=== PATIENT | male | born 1965 | race Caucasian/White ===

== ENCOUNTER 2017-03-24 16:04 | Observation (INO) | payer OTHER ==
[~2017-03-24] VITALS: Ht 172.7 cm; Wt 77.0 kg
[2017-03-24] MEDS ORDERED: ATOR-22 PO (16:06)
[2017-03-24] MEDS ORDERED: ISOS30TA3 PO (16:06)
[2017-03-24] MEDS ORDERED: NORT75CA2 PO (16:06)
[2017-03-24] MEDS ORDERED: MoRPHine SULFATE 4 MG/ML 1 ML CARP\\VIAL IV STA (16:21)
[2017-03-24] MEDS ORDERED: SODIUM CHLORIDE 0.9% 500ML 500 ML IV STA (16:21)
[2017-03-24] MEDS ORDERED: OPTIRAY 320 IV PRN (16:30)
[2017-03-24 16:42] LABS: BASO % 0.8 %; BASO ABS # 0.06 K/uL (0-0.2); COMPLETE YES; EOS % 2.4 %; HEMATOCRIT 45.3 % (42-52); IG% 0.3 %; LYMPH % 23.7 %; LYMPH ABS # 1.75 K/uL (1.2-3.4); MEAN CELL VOLUME 94.6 fL (80-100); MEAN CORPUSCULAR HEMOGLOBIN 33.4 pg (25-34); MEAN CORPUSCULAR HGB CONC 35.3 g/dl (32-36); MEAN PLATELET VOLUME 8.9 fL (7.4-10.4); MONO % 6.6 %; NEUT % 66.2 %; PLATELET COUNT 237 K/uL (130-400); RED BLOOD COUNT 4.79 M/uL (4.7-6.1); WHITE BLOOD COUNT 7.39 K/uL (4.8-10.8)
[2017-03-24 16:50] LABS: ISTAT CREATININE 1.1 mg/dl (0.6-1.3); ISTAT HEMOGLOBIN 15.6 g/dl (14.0-18.0); ISTAT IONIZED CALCIUM 1.25 mmol/l (1.12-1.32)
--- NOTE | 2017-03-24 16:51 | EMERGENCY ROOM VISIT NOTE ---
History Report prepared by Jadon: Tom Mercado Under the Supervision of: Dr. Avi Coleman D.O. First contact with patient: 16:06 Chief Complaint: ABDOMINAL PAIN Stated Complaint: AB PAIN History of Present Illness The patient is a 51 year old male who presents to the Emergency Room with complaints of intermittent, central, lower, abdominal pain beginning 12 years ago. The patient states he has a history of a hernia for the past 12 years. He reports he has not had surgery because he has been in long term. The patient notes he was not doing anything abnormal today, and he started experiencing discomfort. He states his last bowel movement was yesterday. The patient denies vomiting. He reports he has had previous abdominal surgeries for hernias, and he still has his gallbladder and appendix. Source of History: patient Onset: 12 years ago Position: abdomen (central, lower) Timing: intermittent Associated Symptoms: No vomiting Review of Systems See HPI for pertinent positives & negatives. A total of 10 systems reviewed and were otherwise negative. Past Medical & Surgical Medical Problems: (1) Abdominal pain Family History Patient reports no known family medical history. Social History Housing Status: other (long term) Current/Historical Medications Scheduled Atorvastatin (Lipitor), 20 MG PO DAILY Isosorbide Mononitrate Ext Rel (Imdur Ext Rel), 30 MG PO QAM Nortriptyline Hcl (Pamelor), 75 MG PO HS Allergies Coded Allergies: No Known Allergies (Unverified , 03/24/17) Physical Exam Vital Signs Date Time Temp Pulse Resp B/P (MAP) Pulse Ox O2 Delivery O2 Flow Rate FiO2 03/24/17 18:17 83 18 154/108 98 Room Air 03/24/17 17:06 91 18 142/90 97 Room Air 03/24/17 16:08 37.2 90 20 170/103 98 Room Air Physical Exam GENERAL: alert, chronically ill-appearing, disheveled, non-toxic EYE EXAM: normal conjunctiva OROPHARYNX: no exudate, no erythema, lips, buccal mucosa, and tongue normal and mucous membranes are moist NECK: supple, no nuchal rigidity, no adenopathy, non-tender LUNGS: Clear to auscultation. Normal chest wall mechanics HEART: no murmurs, S1 normal and S2 normal ABDOMEN: abdomen soft, normo-active bowel sounds, no rebound or guarding. supra- umbilical hernia appreciated, tenderness to palpation, unable to be reduced. BACK: Back is symmetrical on inspection and there is no deformity, no midline tenderness, no CVA tenderness. SKIN: no rashes and no bruising UPPER EXTREMITIES: upper extremities are grossly normal. LOWER EXTREMITIES: No pitting edema. NEURO EXAM: Normal sensorium, cranial nerves II-XII grossly intact, normal speech, no gross weakness of arms, no gross weakness of legs. Medical Decision & Procedures ER Provider Diagnostic Interpretation: CT:Per my review, radiologist interpretation. CT SCAN OF THE ABDOMEN AND PELVIS WITH IV CONTRAST CLINICAL HISTORY: Periumbilical abdominal pain. COMPARISON STUDY: No priors. TECHNIQUE: Following the IV administration of 119 cc of Optiray 320, CT scan of the abdomen and pelvis is performed from the lung bases to the proximal femora. Images are reviewed in the axial, sagittal, and coronal planes. IV contrast was administered without complication. A dose lowering technique was utilized adhering to the principles of ALARA. CT DOSE: 322.33 mGy.cm FINDINGS: Lung bases: The heart is normal in size and without pericardial effusion. Emphysematous changes observed. The lung bases are otherwise clear noting dependent atelectasis. Liver: The contrast-enhanced liver is normal in size, contour, and attenuation. There is no intrahepatic biliary ductal dilatation. The hepatic veins and portal veins are patent. There is an 8.4 x 8.6 x 7.0 cm lesion in the right hepatic lobe seen on image #99. This demonstrates peripheral foci of nodular enhancement, and although incompletely characterized is typical appearance for a giant hemangioma. A 2.0 cm lesion in the left lobe on image #114 and a 1.6 cm lesion in the inferior right lobe on image #147 also likely represent small hemangiomas. Gallbladder: Unremarkable. Spleen: Normal in size and attenuation. Pancreas: Unremarkable. Adrenal glands: Unremarkable. Kidneys: The contrast enhanced kidneys are normal in size and without hydronephrosis. The kidneys enhance symmetrically. There are 2 small fat attenuation lesions in the lower pole of left kidney measuring up to 1.1 cm. These are consistent with tiny angiomyolipomas. Abdominal vasculature: The abdominal aorta is normal in course and caliber noting mild to moderate and age advanced atherosclerotic calcification. Bowel: The small bowel and colon are normal in course and caliber. There are scattered colonic diverticula without CT evidence of acute diverticulitis. The appendix is well-visualized and normal. Peritoneum: There is no intraperitoneal free air or abdominal ascites. There is a small fat-containing umbilical hernia. There is also a large fat-containing supraumbilical hernia. There is no fluid seen within the or bowel within either hernia sac. No inflammatory change is seen. Lymphadenopathy: None. Pelvic viscera: There is a 2 cm bladder diverticulum seen posteriorly on the left. The bladder is otherwise normal in appearance. The prostate and seminal vesicles are normal as imaged. Skeletal structures: No lytic or blastic lesions are seen. Moderate arthritic change is noted in the hips. IMPRESSION: 1. There are no acute infectious or inflammatory findings in the abdomen or pelvis. 2. Emphysema. 3. There is a small fat-containing umbilical hernia and a large fat-containing supraumbilical hernia. No bowel or fluid is seen within the hernia sacs. 4. There is an 8.6 cm lesion in the right lobe of the liver. Although incompletely characterized, the enhancement kinetics strongly favor a benign hemangioma. 2 additional smaller lesions also likely represent hemangiomas. If definitive characterization is desired a nonemergent MRI of the liver would be appropriate. 5. There is a 2.0 cm bladder diverticulum. 6. Additional findings as above. Electronically signed by: Ryan Hood M.D. 03/24/2017 5:12 PM Dictated Date/Time: 03/24/2017 4:58 PM Laboratory Results 03/24/17 16:33 Red Blood Count 4.79, Mean Corpuscular Volume 94.6, Mean Corpuscular Hemoglobin 33.4, Mean Corpuscular Hemoglobin Concent 35.3, Mean Platelet Volume 8.9, Neutrophils (%) (Auto) 66.2, Lymphocytes (%) (Auto) 23.7, Monocytes (%) (Auto) 6.6, Eosinophils (%) (Auto) 2.4, Basophils (%) (Auto) 0.8, Neutrophils # (Auto) 4.89, Lymphocytes # (Auto) 1.75, Monocytes # (Auto) 0.49, Eosinophils # (Auto) 0.18, Basophils # (Auto) 0.06 03/24/17 16:33 Test 03/24/17 00:00 03/24/17 16:33 03/24/17 16:40 Urine Color YELLOW Urine Appearance CLEAR (CLEAR) Urine pH 7.5 (4.5-7.5) Urine Specific [place] 1.009 (1.000-1.030) Urine Protein NEG (NEG) Urine Glucose (UA) NEG (NEG) Urine Ketones NEG (NEG) Urine Occult Blood NEG (NEG) Urine Nitrite NEG (NEG) Urine Bilirubin NEG (NEG) Urine Urobilinogen NEG (NEG) Urine Leukocyte Esterase NEG (NEG) Urine WBC (Auto) 0 /hpf (0-5) Urine RBC (Auto) 0-4 /hpf (0-4) Urine Hyaline Casts (Auto) 0 /lpf (0-5) Urine Epithelial Cells (Auto) 0-5 /lpf (0-5) Urine Bacteria (Auto) NEG (NEG) White Blood Count 7.39 K/uL (4.8-10.8) Red Blood Count 4.79 M/uL (4.7-6.1) Hemoglobin 16.0 g/dL (14.0-18.0) Hematocrit 45.3 % (42-52) Mean Corpuscular Volume 94.6 fL (80-100) Mean Corpuscular Hemoglobin 33.4 pg (25-34) Mean Corpuscular Hemoglobin Concent 35.3 g/dl (32-36) Platelet Count 237 K/uL (130-400) Mean Platelet Volume 8.9 fL (7.4-10.4) Neutrophils (%) (Auto) 66.2 % Lymphocytes (%) (Auto) 23.7 % Monocytes (%) (Auto) 6.6 % Eosinophils (%) (Auto) 2.4 % Basophils (%) (Auto) 0.8 % Neutrophils # (Auto) 4.89 K/uL (1.4-6.5) Lymphocytes # (Auto) 1.75 K/uL (1.2-3.4) Monocytes # (Auto) 0.49 K/uL (0.11-0.59) Eosinophils # (Auto) 0.18 K/uL (0-0.5) Basophils # (Auto) 0.06 K/uL (0-0.2) RDW Standard Deviation 46.7 fL (36.4-46.3) RDW Coefficient of Variation 13.5 % (11.5-14.5) Immature Granulocyte % (Auto) 0.3 % Immature Granulocyte # (Auto) 0.02 K/uL (0.00-0.02) Est Creatinine Clear Calc Drug Dose 78.6 ml/min Estimated GFR () 90.9 Estimated GFR (Non- 78.4 BUN/Creatinine Ratio 12.4 (10-20) Lactic Acid Level 0.7 mmol/L (0.4-2.0) Calcium Level 8.8 mg/dl (8.5-10.1) Total Bilirubin 0.3 mg/dl (0.2-1) Direct Bilirubin < 0.1 mg/dl (0-0.2) Aspartate Amino Transf (AST/SGOT) 14 U/L (15-37) Alanine Aminotransferase (ALT/SGPT) 26 U/L (12-78) Alkaline Phosphatase 95 U/L (45-117) Total Protein 6.9 gm/dl (6.4-8.2) Albumin 3.7 gm/dl (3.4-5.0) Lipase 210 U/L (73-393) Bedside Hemoglobin 15.6 g/dl (14.0-18.0) Bedside Hematocrit 46 % (42-52) Bedside Sodium 144 mEq/L (135-144) Bedside Potassium 4.0 mEq/L (3.3-5.0) Bedside Chloride 105 mEq/L (101-112) Bedside Total CO2 26 mEq/l (24-31) Anion Gap 17.0 mmol/L (16-25) Bedside Blood Urea Nitrogen 14 mg/dl (7-18) Bedside Creatinine 1.1 mg/dl (0.6-1.3) Bedside Glucose (other) 88 mg/dl (70-99) Bedside Ionized Calcium (Ziggy) 1.25 mmol/l (1.12-1.32) Laboratory results per my review. Medications Administered Medications (Trade) Dose Ordered Sig/[place] Route Start Time Stop Time Status Last Admin Dose Admin Sodium Chloride 500 ml @ 999 mls/hr Q31M STAT IV 03/24/17 16:21 03/24/17 16:51 DC 03/24/17 16:21 999 MLS/HR Morphine Sulfate (MoRPHine SULFATE INJ) 4 mg NOW STAT IV 17 16:21 03/24/17 16:23 DC 03/24/17 16:29 4 MG ED Course ED COURSE: Vital signs were reviewed and showed the patient to be hypertensive. The patients medical record was reviewed The above diagnostic studies were performed and reviewed. ED treatments and interventions as stated above. 1607: The patient was evaluated in room C05. A complete history and physical examination was performed. 1621: Ordered Morphine Sulfate 4mg IV, Sodium Chloride 500 ml @ 999 mls/hr IV 1752: Upon reevaluation, the patient is resting.I discussed my findings with the patient and he understands and agrees with the treatment plan. 1808: I discussed the patient's case with Dr. Rojas, General Surgery. He suggested the patient be observed with IV fluids and conservative medication. 182: I discussed the patient's case with Annie Vinson PA-C, [facility] The patient will be evaluated for further management and care. Based on the patients age, coexisting illnesses, exam and lab findings the decision to treat as an inpatient was made. The patient remained stable while under my care. The patient will be evaluated for further management. Medical Decision Differential diagnoses includes but is not limited to gastritis, peptic ulcer disease, GERD, gallbladder disease, pancreatitis, small bowel obstruction, acute coronary syndrome, pericarditis, ischemic bowel, irritable bowel disease, irritable bowel syndrome, appendicitis, diverticulitis, malignancy, hernia, urinary tract infection, torsion, perforation, trauma, infectious. Patient is a 51-year-old male who presents to ER for pain around his abdominal hernia. He was sent in by the physician at the long term. On exam he has a supraumbilical hernia which is tender to palpation and has mild erythema. Unable to reduce. CBC all BMP, LFTs, bilirubin lipase is unremarkable. Lactic acid was normal. CT of abdomen and pelvis shows umbilical hernia and supraumbilical hernia which are fat containing. Patient was given IV morphine and fluids. Patient was feeling slightly better. Discussed with general surgery who recommended admission to internal medicine. Medication Reconcilliation Current Medication List: was personally reviewed by me Blood Pressure Screening Patient's blood pressure: Elevated blood pressure Blood pressure disposition: Elevated BP felt to be situational Consults Time Called: 1803 Consulting Physician: Dr. Rojas, General Surgery Returned Call: 1807 I discussed the patient's case with Dr. Rojas, General Surgery. He suggested the patient be observed with IV fluids and conservative medication. Additional Consults: Time Called: 1823 Consulted Physician: [facility]-C[facility] Returned Call: 1826 Additional Comments: I discussed the patient's case with Annie Vinson PA-C, [facility] Hospitalist. The patient will be evaluated for further management and care. Impression Primary Impression: Abdominal pain Scribe Attestation The scribe's documentation has been prepared under my direction and personally reviewed by me in its entirety. I confirm that the note above accurately reflects all work, treatment, procedures, and medical decision making performed by me. Departure Information Dispostion Being Evaluated By Hospitalist Patient Instructions [facility] Problem Qualifiers Primary Impression: Abdominal pain Abdominal location: unspecified location Qualified Codes: R10.9 - Unspecified abdominal pain
[2017-03-24 17:04] LABS: ALT/SGPT 26 U/L (12-78); AST/SGOT 14 U/L (15-37); BLOOD UREA NITROGEN 14 mg/dl (7-18); BUN/CREATININE RATIO 12.4 (10-20); CALCIUM 8.8 mg/dl (8.5-10.1); CARBON DIOXIDE 27 mmol/L (21-32); CHLORIDE 110 mmol/L (98-107); GLUCOSE 97 mg/dl (70-99); SODIUM 143 mmol/L (136-145)
[2017-03-24 17:06] LABS: ALKALINE PHOSPHATASE 95 U/L (45-117)
[2017-03-24 17:07] LABS: URINE APPEARANCE CLEAR (CLEAR); URINE BILIRUBIN NEG (NEG); URINE COLOR YELLOW; URINE EPITHELIAL CELL AUTO 0-5 /lpf (0-5); URINE NITRITE NEG (NEG); URINE PH 7.5 (4.5-7.5); URINE SPECIFIC GRAVITY 1.009 (1.000-1.030); UROBILINOGEN NEG (NEG); ZZUR CULT IF INDIC CLEAN CATCH NO
[2017-03-24 17:08] LABS: MANUAL MICROSCOPIC REQUIRED? NO; REVIEW REQ? NO
--- NOTE | 2017-03-24 17:13 | DIAGNOSTIC IMAGING REPORT ---
CT SCAN OF THE ABDOMEN AND PELVIS WITH IV CONTRAST CLINICAL HISTORY: Periumbilical abdominal pain. COMPARISON STUDY: No priors. TECHNIQUE: Following the IV administration of 119 cc of Optiray 320, CT scan of the abdomen and pelvis is performed from the lung bases to the proximal femora. Images are reviewed in the axial, sagittal, and coronal planes. IV contrast was administered without complication. A dose lowering technique was utilized adhering to the principles of ALARA. CT DOSE: 322.33 mGy.cm FINDINGS: Lung bases: The heart is normal in size and without pericardial effusion. Emphysematous changes observed. The lung bases are otherwise clear noting dependent atelectasis. Liver: The contrast-enhanced liver is normal in size, contour, and attenuation. There is no intrahepatic biliary ductal dilatation. The hepatic veins and portal veins are patent. There is an 8.4 x 8.6 x 7.0 cm lesion in the right hepatic lobe seen on image #99. This demonstrates peripheral foci of nodular enhancement, and although incompletely characterized is typical appearance for a giant hemangioma. A 2.0 cm lesion in the left lobe on image #114 and a 1.6 cm lesion in the inferior right lobe on image #147 also likely represent small hemangiomas. Gallbladder: Unremarkable. Spleen: Normal in size and attenuation. Pancreas: Unremarkable. Adrenal glands: Unremarkable. Kidneys: The contrast enhanced kidneys are normal in size and without hydronephrosis. The kidneys enhance symmetrically. There are 2 small fat attenuation lesions in the lower pole of left kidney measuring up to 1.1 cm. These are consistent with tiny angiomyolipomas. Abdominal vasculature: The abdominal aorta is normal in course and caliber noting mild to moderate and age advanced atherosclerotic calcification. Bowel: The small bowel and colon are normal in course and caliber. There are scattered colonic diverticula without CT evidence of acute diverticulitis. The appendix is well-visualized and normal. Peritoneum: There is no intraperitoneal free air or abdominal ascites. There is a small fat-containing umbilical hernia. There is also a large fat-containing supraumbilical hernia. There is no fluid seen within the or bowel within either hernia sac. No inflammatory change is seen. Lymphadenopathy: None. Pelvic viscera: There is a 2 cm bladder diverticulum seen posteriorly on the left. The bladder is otherwise normal in appearance. The prostate and seminal vesicles are normal as imaged. Skeletal structures: No lytic or blastic lesions are seen. Moderate arthritic change is noted in the hips. IMPRESSION: 1. There are no acute infectious or inflammatory findings in the abdomen or pelvis. 2. Emphysema. 3. There is a small fat-containing umbilical hernia and a large fat-containing supraumbilical hernia. No bowel or fluid is seen within the hernia sacs. 4. There is an 8.6 cm lesion in the right lobe of the liver. Although incompletely characterized, the enhancement kinetics strongly favor a benign hemangioma. 2 additional smaller lesions also likely represent hemangiomas. If definitive characterization is desired a nonemergent MRI of the liver would be appropriate. 5. There is a 2.0 cm bladder diverticulum. 6. Additional findings as above. Electronically signed by: Ryan Hood M.D. 03/24/2017 5:12 PM Dictated Date/Time: 03/24/2017 4:58 PM
[2017-03-24] MEDS ORDERED: POLYETHYLENE (MIRALAX) 17 GM PACK PO PRN (19:00)
[2017-03-24] MEDS ORDERED: MAGNESIUM HYDROXIDE SUSP 30 ML UDC PO PRN (19:00)
[2017-03-24] MEDS ORDERED: IV FLUIDS COMPLETED PRN (19:00)
[2017-03-24] MEDS ORDERED: ALUMINUM/MAGNESIUM/SIMETH (MAALOX MAX) 30 ML UDC PO PRN (19:00)
[2017-03-24] MEDS ORDERED: ONDANSETRON INJ 2 MG/ML 2 ML VIAL IV PRN (19:00)
--- NOTE | 2017-03-24 19:24 | HISTORY & PHYSICAL EXAMINATION ---
DATE OF ADMISSION: 03/24/2017 CHIEF COMPLAINT: Abdominal pain. HISTORY OF PRESENT ILLNESS: This is a 51-year-old male coming from the correctional [facility] with past medical history significant for hyperlipidemia, questionable high blood pressure and abdominal hernias presents with abdominal pain. The patient says he has abdominal pain on and off since 12 years because of his hernias. In the last 2-3 days, he is having severe 10/10 abdominal pain radiating from center to periphery of his abdomen. Denies any nausea or vomiting. Had normal bowel movements yesterday. Currently, resting comfortably and hemodynamically stable. He has headaches, no blurred vision, no cough, has some sore throat, has some difficulty swallowing chronically. No chest pain, no shortness of breath, no fever, no chills, has complaints of some mild rash in back of the head. No swelling in the legs. Normal bowel and bladder movements. No blood in the stools or blood in the urine. ALLERGIES: No known drug allergies. PAST MEDICAL HISTORY: As mentioned above. PAST SURGICAL HISTORY: Has questionable inguinal hernia, bilateral inguinal hernia when he was a kid. MEDICATIONS: The patient is on Lipitor 20 mg p.o. daily, Imdur extended release 30 mg p.o. q.a.m., Nortriptyline 75 mg p.o. at bedtime. FAMILY HISTORY: Significant for mother has high blood pressure. REVIEW OF SYMPTOMS: As per HPI. Rest of review of symptoms negative. PHYSICAL EXAMINATION: GENERAL: The patient is of moderate build, not in distress. VITAL SIGNS: Temperature 37.2, pulse 83, respiratory rate 18, blood pressure 154/108, oxygen 99% on room air. HEENT: No pallor, no icterus. Pupils equal, round, and reactive to light. NECK: No JVD, no neck masses, no carotid bruits. CARDIOVASCULAR: S1, S2 heard, regular rate and rhythm, no murmur, no gallop. RESPIRATORY SYSTEM: Clear to auscultation bilaterally. No wheezing, no crackles. ABDOMEN: Soft, bowel sounds present. Mild diffuse tenderness, no rigidity, no guarding. No distention. CENTRAL NERVOUS SYSTEM: Cranial nerves II-XII grossly intact. Nonfocal. EXTREMITIES: No edema, no erythema. LABORATORY DATA: Urinalysis negative. Sodium 144, potassium 4, chloride 105, bicarbonate 27, BUN 14, creatinine 1.1, serum glucose 97. Lactic acid 0.7, calcium 8.8, total bilirubin 0.3, direct bilirubin less than 0.1, AST 14, ALT 26, alkaline phosphatase 95. Lipase 210. Urinalysis - wbc's 7.3. Hemoglobin 16, hematocrit 45.3, platelets 237. IMAGING DATA: CT of the abdomen and pelvis shows no acute infectious or inflammatory findings in the abdominal or pelvis. There is a small fat containing umbilical hernia and large fat containing supraumbilical hernia, no bowel or fluid seen.8.6cm lesion seen in the right lobe of the liver, most likely hemangioma, additional small lesions also likely represents hemangiomas. ASSESSMENT AND PLAN: 1. This is a 51-year-old male who presents with abdominal pain. CAT scan shows fat containing of small umbilical hernia and supraumbilical hernias. As per patient, they are there since last 12 years and bothering him. He wants them to be fixed. last two days pain has been worse. Surgery is consulted. We will observe the patient in the hospital. Pain control, IV fluids. We will continue with diet and monitor him on the medical floor. If stable, plan for [facility] and follow with surgery as an outpatient. 2. Hyperlipidemia. The patient says he is not taking any medications. 3. Questionable high blood pressure. The patient on Imdur but says he dont have high blood pressure and he says he has intermittent chest pain, probably it was prescribed for his chest pains. 4. Deep vein thrombosis prophylaxis: scds 5. Disposition: Observation on medical floor. Expected discharge back to correction facility, when stable. Level 1 full code. MTDD
--- NOTE | 2017-03-24 19:59 | Medical Consult ---
Consultation Date of Consultation: Mar 24, 2017. Attending Physician: Reason for Consultation: hernias History of Present Illness pt with longstanding abd pain and known umbilical and ventral hernias Social History Smoking Status: Former Smoker Allergies Coded Allergies: No Known Allergies (Unverified , 03/24/17) Current Inpatient Medications Current Inpatient Medications Medications (Trade) Dose Ordered Sig/[place] Route Start Time Stop Time Status Last Admin Dose Admin Ioversol (Optiray 320) 100 ml UD PRN IV 03/24/17 16:30 03/28/17 16:29 Acetaminophen (Tylenol Tab) 650 mg Q4H PRN PO 03/24/17 19:00 04/23/17 18:59 Al Hydrox/Mg Hydrox/Simethicone (Maalox Max Susp) 15 ml Q4H PRN PO 03/24/17 19:00 04/23/17 18:59 Magnesium Hydroxide (Milk Of Magnesia Susp) 30 ml Q6H PRN PO 03/24/17 19:00 04/23/17 18:59 Polyethylene (Miralax Powder Packet) 17 gm DAILY PRN PO 03/24/17 19:00 04/23/17 18:59 Ondansetron HCl (Zofran Inj) 4 mg Q6H PRN IV 03/24/17 19:00 04/23/17 18:59 Sodium Chloride 1,000 ml @ 100 mls/hr Q10H IV 03/24/17 19:00 04/23/17 18:59 UNV Isosorbide Mononitrate (Imdur Ext Rel Tab) 30 mg QAM PO 03/25/17 09:00 04/24/17 08:59 Nortriptyline HCl (Pamelor Cap) 75 mg HS PO 03/24/17 21:00 04/23/17 20:59 Morphine Sulfate (MoRPHine SULFATE INJ) 2 mg Q4 PRN IV 03/24/17 19:00 04/07/17 18:59 Famotidine 20 mg/ Dextrose 102 ml @ 200 mls/hr Q12H IV 03/24/17 19:00 04/23/17 18:59 UNV Miscellaneous (Iv Fluids Completed) 1 ea PRN PRN N/A 03/24/17 19:00 03/24/18 18:59 Review of Systems Constitutional: No fever, No chills Respiratory: No cough, No shortness of breath Cardiovascular: No chest pain Abdomen: + pain, No nausea, No vomiting Endocrine: No fatigue Integumentary: No rash Physical Exam Date Time Temp Pulse Resp B/P (MAP) Pulse Ox O2 Delivery O2 Flow Rate FiO2 03/24/17 19:25 82 18 139/94 95 Room Air 03/24/17 18:17 83 18 154/108 98 Room Air 03/24/17 17:06 91 18 142/90 97 Room Air 03/24/17 16:08 37.2 90 20 170/103 98 Room Air General Appearance: no apparent distress Head: atraumatic Eyes: sclerae normal Neck: supple Respiratory/Chest: no respiratory distress Cardiovascular: regular rate, rhythm Abdomen/GI: soft (minimal tenderness, ventral hernia reducible- recurs) Neurologic/Psych: alert Skin: no rash Laboratory Results Last 24 Hours Test 03/24/17 00:00 03/24/17 16:33 03/24/17 16:40 Urine Color YELLOW Urine Appearance CLEAR Urine pH 7.5 Urine Specific Pep 1.009 Urine Protein NEG Urine Glucose (UA) NEG Urine Ketones NEG Urine Occult Blood NEG Urine Nitrite NEG Urine Bilirubin NEG Urine Urobilinogen NEG Urine Leukocyte Esterase NEG Urine WBC (Auto) 0 /hpf Urine RBC (Auto) 0-4 /hpf Urine Hyaline Casts (Auto) 0 /lpf Urine Epithelial Cells (Auto) 0-5 /lpf Urine Bacteria (Auto) NEG White Blood Count 7.39 K/uL Red Blood Count 4.79 M/uL Hemoglobin 16.0 g/dL Hematocrit 45.3 % Mean Corpuscular Volume 94.6 fL Mean Corpuscular Hemoglobin 33.4 pg Mean Corpuscular Hemoglobin Concent 35.3 g/dl Platelet Count 237 K/uL Mean Platelet Volume 8.9 fL Neutrophils (%) (Auto) 66.2 % Lymphocytes (%) (Auto) 23.7 % Monocytes (%) (Auto) 6.6 % Eosinophils (%) (Auto) 2.4 % Basophils (%) (Auto) 0.8 % Neutrophils # (Auto) 4.89 K/uL Lymphocytes # (Auto) 1.75 K/uL Monocytes # (Auto) 0.49 K/uL Eosinophils # (Auto) 0.18 K/uL Basophils # (Auto) 0.06 K/uL RDW Standard Deviation 46.7 fL RDW Coefficient of Variation 13.5 % Immature Granulocyte % (Auto) 0.3 % Immature Granulocyte # (Auto) 0.02 K/uL Sodium Level 143 mmol/L Potassium Level 4.0 mmol/L Chloride Level 110 mmol/L Carbon Dioxide Level 27 mmol/L Anion Gap 6.0 mmol/L 17.0 mmol/L Blood Urea Nitrogen 14 mg/dl Creatinine 1.10 mg/dl Est Creatinine Clear Calc Drug Dose 78.6 ml/min Estimated GFR () 90.9 Estimated GFR (Non- 78.4 BUN/Creatinine Ratio 12.4 Random Glucose 97 mg/dl Lactic Acid Level 0.7 mmol/L Calcium Level 8.8 mg/dl Total Bilirubin 0.3 mg/dl Direct Bilirubin < 0.1 mg/dl Aspartate Amino Transf (AST/SGOT) 14 U/L Alanine Aminotransferase (ALT/SGPT) 26 U/L Alkaline Phosphatase 95 U/L Total Protein 6.9 gm/dl Albumin 3.7 gm/dl Lipase 210 U/L Bedside Hemoglobin 15.6 g/dl Bedside Hematocrit 46 % Bedside Sodium 144 mEq/L Bedside Potassium 4.0 mEq/L Bedside Chloride 105 mEq/L Bedside Total CO2 26 mEq/l Bedside Blood Urea Nitrogen 14 mg/dl Bedside Creatinine 1.1 mg/dl Bedside Glucose (other) 88 mg/dl Bedside Ionized Calcium (Ziggy) 1.25 mmol/l Assessment & Plan pt with very stable umbilical hernia- small with fat and 2-3 cm ventral hernia with fat- not strangulated- does not require urgent repair. no prior abd hernia repair- can likely perform electively with laparoscope at some point in future. Regular diet. set up as outpt after d/c
[2017-03-24 20:17] VITALS: BP 149/98; PULSE 92; TEMP 36.7; O2SAT 98
[2017-03-24 20:29] VITALS: BP 149/98; PULSE 92; TEMP 36.7; Ht 172.7 cm; Wt 77.0 kg
[2017-03-24] MEDS: SODIUM CHLORIDE 0.9% 1000ML 1,000 ML IV SCH (20:40)
[2017-03-24] MEDS: FAMOTIDINE IV INJ 20 MG in DEXTROSE 5% 100ML 100 ML IV SCH (20:41)
[2017-03-24] MEDS: NORTRIPTYLINE HCL 25 MG CAP PO SCH (22:31)
[2017-03-24 23:08] VITALS: BP 126/80; PULSE 74; TEMP 36.7; O2SAT 95
[2017-03-25] MEDS: ACETAMINOPHEN 325 MG TAB PO PRN ×2 (00:10→13:28)
[2017-03-25] MEDS: SODIUM CHLORIDE 0.9% 1000ML 1,000 ML IV SCH ×3 (04:58→23:50)
[2017-03-25] MEDS: MoRPHine SULFATE 2 MG/ML CARP IV PRN (05:00)
[2017-03-25 07:12] VITALS: BP 112/74; PULSE 69; TEMP 36.4; O2SAT 97
[2017-03-25 07:16] LABS: BASO % 0.6 %; BASO ABS # 0.06 K/uL (0-0.2); COMPLETE YES; EOS % 2.2 %; HEMATOCRIT 42.6 % (42-52); IG% 0.2 %; LYMPH % 16.9 %; MEAN CELL VOLUME 95.7 fL (80-100); MEAN CORPUSCULAR HEMOGLOBIN 31.9 pg (25-34); MEAN CORPUSCULAR HGB CONC 33.3 g/dl (32-36); MONO % 8.1 %; PLATELET COUNT 220 K/uL (130-400); RED BLOOD COUNT 4.45 M/uL (4.7-6.1); WHITE BLOOD COUNT 10.06 K/uL (4.8-10.8)
[2017-03-25 07:48] LABS: BUN/CREATININE RATIO 12.3 (10-20); CALCIUM 8.2 mg/dl (8.5-10.1); CREATININE 0.99 mg/dl (0.60-1.40); MAGNESIUM 2.3 mg/dl (1.8-2.4); POTASSIUM 4.3 mmol/L (3.5-5.1)
[2017-03-25 08:05] VITALS: O2SAT 97
--- NOTE | 2017-03-25 08:16 | Surgery Progress Note ---
Surgery Progress Note Date of Service Mar 25, 2017. Subjective pt is very stable- no acute chgs Objective Vital Signs: Date Time Temp Pulse Resp B/P (MAP) Pulse Ox O2 Delivery O2 Flow Rate FiO2 03/25/17 07:12 36.4 69 16 112/74 (87) 97 Room Air 03/25/17 00:12 Room Air 03/24/17 23:08 36.7 74 16 126/80 (95) 95 Room Air 03/24/17 20:29 36.7 92 18 149/98 Room Air 03/24/17 20:17 36.7 92 18 149/98 (115) 98 Room Air 03/24/17 20:03 79 18 142/97 96 Room Air 03/24/17 19:25 82 18 139/94 95 Room Air 03/24/17 18:17 83 18 154/108 98 Room Air 03/24/17 17:06 91 18 142/90 97 Room Air 03/24/17 16:08 37.2 90 20 170/103 98 Room Air General Appearance: no apparent distress Respiratory/Chest: no respiratory distress Abdomen: non distended (no evidence of hernia strangulation), soft Laboratory Results: Results Past 24 Hours Test 03/24/17 16:33 03/24/17 16:40 03/25/17 06:47 Range/Units White Blood Count 7.39 10.06 4.8-10.8 K/uL Red Blood Count 4.79 4.45 4.7-6.1 M/uL Hemoglobin 16.0 14.2 14.0-18.0 g/dL Hematocrit 45.3 42.6 42-52 % Mean Corpuscular Volume 94.6 95.7 80-100 fL Mean Corpuscular Hemoglobin 33.4 31.9 25-34 pg Mean Corpuscular Hemoglobin Concent 35.3 33.3 32-36 g/dl Platelet Count 237 220 130-400 K/uL Mean Platelet Volume 8.9 9.0 7.4-10.4 fL Neutrophils (%) (Auto) 66.2 72.0 % Lymphocytes (%) (Auto) 23.7 16.9 % Monocytes (%) (Auto) 6.6 8.1 % Eosinophils (%) (Auto) 2.4 2.2 % Basophils (%) (Auto) 0.8 0.6 % Neutrophils # (Auto) 4.89 7.25 1.4-6.5 K/uL Lymphocytes # (Auto) 1.75 1.70 1.2-3.4 K/uL Monocytes # (Auto) 0.49 0.81 0.11-0.59 K/uL Eosinophils # (Auto) 0.18 0.22 0-0.5 K/uL Basophils # (Auto) 0.06 0.06 0-0.2 K/uL RDW Standard Deviation 46.7 48.2 36.4-46.3 fL RDW Coefficient of Variation 13.5 13.7 11.5-14.5 % Immature Granulocyte % (Auto) 0.3 0.2 % Immature Granulocyte # (Auto) 0.02 0.02 0.00-0.02 K/uL Sodium Level 143 144 136-145 mmol/L Potassium Level 4.0 4.3 3.5-5.1 mmol/L Chloride Level 110 113 98-107 mmol/L Carbon Dioxide Level 27 26 21-32 mmol/L Anion Gap 6.0 17.0 5.0 3-11 mmol/L Blood Urea Nitrogen 14 12 7-18 mg/dl Creatinine 1.10 0.99 0.60-1.40 mg/dl Est Creatinine Clear Calc Drug Dose 78.6 87.3 ml/min Estimated GFR () 90.9 103.2 Estimated GFR (Non- 78.4 89.1 BUN/Creatinine Ratio 12.4 12.3 10-20 Random Glucose 97 106 70-99 mg/dl Lactic Acid Level 0.7 0.4-2.0 mmol/L Calcium Level 8.8 8.2 8.5-10.1 mg/dl Total Bilirubin 0.3 0.2-1 mg/dl Direct Bilirubin < 0.1 0-0.2 mg/dl Aspartate Amino Transf (AST/SGOT) 14 15-37 U/L Alanine Aminotransferase (ALT/SGPT) 26 12-78 U/L Alkaline Phosphatase 95 45-117 U/L Total Protein 6.9 6.4-8.2 gm/dl Albumin 3.7 3.4-5.0 gm/dl Lipase 210 73-393 U/L Bedside Hemoglobin 15.6 14.0-18.0 g/dl Bedside Hematocrit 46 42-52 % Bedside Sodium 144 135-144 mEq/L Bedside Potassium 4.0 3.3-5.0 mEq/L Bedside Chloride 105 101-112 mEq/L Bedside Total CO2 26 24-31 mEq/l Bedside Blood Urea Nitrogen 14 7-18 mg/dl Bedside Creatinine 1.1 0.6-1.3 mg/dl Bedside Glucose (other) 88 70-99 mg/dl Bedside Ionized Calcium (Ziggy) 1.25 1.12-1.32 mmol/l Magnesium Level 2.3 1.8-2.4 mg/dl Assessment & Plan 03/25/17- Pt is stable to have elective hernia surgery- does not need to be done this weekend. [facility] and set up through office and [facility]
[2017-03-25] MEDS: ISOSORBIDE MONONITRATE 30 MG TABCR PO SCH (09:05)
[2017-03-25] MEDS: FAMOTIDINE IV INJ 20 MG in DEXTROSE 5% 100ML 100 ML IV SCH ×2 (09:05→22:12)
[2017-03-25 15:10] VITALS: BP 115/62; PULSE 70; TEMP 36.8; O2SAT 97
--- NOTE | 2017-03-25 17:12 | Progress Note ---
Internal Med Progress Note Date of Service: Mar 25, 2017. Provider Documentation: SUBJECTIVE: eating fine no nausea but says his pain is same and does not want to go back today and want to wait for one more dsay no sob afebrile OBJECTIVE: Vital Signs-as noted below Exam: General-alert and awake. Not in distress ENT-normal hearing Neck-no neck masses Lungs-cta b/l no wheezing present no crackles Heart-s1 and s2 heard regular rate and rhythm no murmurs Abdomen-soft bowel sounds present mild diffuse tender no distension Extremities-no erythema no edema Neuro-alert and awake moves extremities Lab data as noted below. ASSESSMENT & PLAN: 1. This is a 51-year-old male who presents with abdominal pain. CAT scan shows fat containing of small umbilical hernia and supraumbilical hernias. As per patient, they are there since last 12 years and bothering him. He wants them to be fixed. last two days pain has been worse. Surgery is consulted. We will observe the patient in the hospital. Pain control, IV fluids. We will continue with diet and monitor him on the medical floor. If stable, plan [facility] and follow with surgery as an outpatient. 03/25/17 surgery ok to d/c and f/u next week for elective surgery but patinet not ready for discharge will observe one more day and monitor. 2. Hyperlipidemia. The patient says he is not taking any medications. 3. Questionable high blood pressure. The patient on Imdur but says he dont have high blood pressure and he says he has intermittent chest pain, probably it was prescribed for his chest pains.stable 4. Deep vein thrombosis prophylaxis: scds 5. Disposition: Observation on medical floor. Expected [facility], possibly in am.. Level 1 full code Vital Signs: Date Time Temp Pulse Resp B/P (MAP) Pulse Ox O2 Delivery O2 Flow Rate FiO2 03/25/17 15:10 36.8 70 18 115/62 (79) 97 Room Air 03/25/17 08:05 97 Room Air 03/25/17 07:12 36.4 69 16 112/74 (87) 97 Room Air 03/25/17 00:12 Room Air 03/24/17 23:08 36.7 74 16 126/80 (95) 95 Room Air 03/24/17 20:29 36.7 92 18 149/98 Room Air 03/24/17 20:17 36.7 92 18 149/98 (115) 98 Room Air 03/24/17 20:03 79 18 142/97 96 Room Air 03/24/17 19:25 82 18 139/94 95 Room Air 03/24/17 18:17 83 18 154/108 98 Room Air Lab Results: Results Past 24 Hours Test 03/25/17 06:47 Range/Units White Blood Count 10.06 4.8-10.8 K/uL Red Blood Count 4.45 4.7-6.1 M/uL Hemoglobin 14.2 14.0-18.0 g/dL Hematocrit 42.6 42-52 % Mean Corpuscular Volume 95.7 80-100 fL Mean Corpuscular Hemoglobin 31.9 25-34 pg Mean Corpuscular Hemoglobin Concent 33.3 32-36 g/dl Platelet Count 220 130-400 K/uL Mean Platelet Volume 9.0 7.4-10.4 fL Neutrophils (%) (Auto) 72.0 % Lymphocytes (%) (Auto) 16.9 % Monocytes (%) (Auto) 8.1 % Eosinophils (%) (Auto) 2.2 % Basophils (%) (Auto) 0.6 % Neutrophils # (Auto) 7.25 1.4-6.5 K/uL Lymphocytes # (Auto) 1.70 1.2-3.4 K/uL Monocytes # (Auto) 0.81 0.11-0.59 K/uL Eosinophils # (Auto) 0.22 0-0.5 K/uL Basophils # (Auto) 0.06 0-0.2 K/uL RDW Standard Deviation 48.2 36.4-46.3 fL RDW Coefficient of Variation 13.7 11.5-14.5 % Immature Granulocyte % (Auto) 0.2 % Immature Granulocyte # (Auto) 0.02 0.00-0.02 K/uL Sodium Level 144 136-145 mmol/L Potassium Level 4.3 3.5-5.1 mmol/L Chloride Level 113 98-107 mmol/L Carbon Dioxide Level 26 21-32 mmol/L Anion Gap 5.0 3-11 mmol/L Blood Urea Nitrogen 12 7-18 mg/dl Creatinine 0.99 0.60-1.40 mg/dl Est Creatinine Clear Calc Drug Dose 87.3 ml/min Estimated GFR () 103.2 Estimated GFR (Non- 89.1 BUN/Creatinine Ratio 12.3 10-20 Random Glucose 106 70-99 mg/dl Calcium Level 8.2 8.5-10.1 mg/dl Magnesium Level 2.3 1.8-2.4 mg/dl
[2017-03-25] MEDS ORDERED: MoRPHine SULFATE 2 MG/ML CARP IV ONE (17:30)
[2017-03-25] MEDS: NORTRIPTYLINE HCL 25 MG CAP PO SCH (22:12)
[2017-03-25 23:45] VITALS: BP 124/70; PULSE 74; TEMP 36.7; O2SAT 95
[2017-03-26 06:24] LABS: BASO % 0.5 %; BASO ABS # 0.06 K/uL (0-0.2); COMPLETE YES; EOS % 1.6 %; HEMATOCRIT 38.7 % (42-52); IG% 0.2 %; LYMPH % 15.9 %; LYMPH ABS # 1.99 K/uL (1.2-3.4); MEAN CELL VOLUME 95.1 fL (80-100); MEAN CORPUSCULAR HEMOGLOBIN 32.4 pg (25-34); MEAN CORPUSCULAR HGB CONC 34.1 g/dl (32-36); MEAN PLATELET VOLUME 9.2 fL (7.4-10.4); NEUT % 74.8 %; PLATELET COUNT 222 K/uL (130-400); RED BLOOD COUNT 4.07 M/uL (4.7-6.1)
[2017-03-26 06:55] LABS: CALCIUM 8.3 mg/dl (8.5-10.1); MAGNESIUM 1.8 mg/dl (1.8-2.4); POTASSIUM 3.6 mmol/L (3.5-5.1)
[2017-03-26 07:37] VITALS: BP 123/75; PULSE 74; TEMP 36.8; O2SAT 97
[2017-03-26] MEDS: MoRPHine SULFATE 2 MG/ML CARP IV PRN (08:11)
[2017-03-26] MEDS: FAMOTIDINE IV INJ 20 MG in DEXTROSE 5% 100ML 100 ML IV SCH (09:15)
[2017-03-26] MEDS: ISOSORBIDE MONONITRATE 30 MG TABCR PO SCH (09:16)
[2017-03-26] MEDS: SODIUM CHLORIDE 0.9% 1000ML 1,000 ML IV SCH ×2 (10:26→20:15)
--- NOTE | 2017-03-26 14:07 | Surgery Progress Note ---
Surgery Progress Note Date of Service Mar 26, 2017. Subjective no acute chgs- discussed plan Objective Vital Signs: Date Time Temp Pulse Resp B/P (MAP) Pulse Ox O2 Delivery O2 Flow Rate FiO2 03/26/17 07:50 Room Air 03/26/17 07:37 36.8 74 16 123/75 (91) 97 Room Air 03/25/17 23:55 Room Air 03/25/17 23:45 36.7 74 16 124/70 (88) 95 Room Air 03/25/17 16:10 Room Air 03/25/17 15:10 36.8 70 18 115/62 (79) 97 Room Air General Appearance: no apparent distress Respiratory/Chest: no respiratory distress Abdomen: soft Laboratory Results: Results Past 24 Hours Test 03/26/17 05:36 Range/Units White Blood Count 12.50 4.8-10.8 K/uL Red Blood Count 4.07 4.7-6.1 M/uL Hemoglobin 13.2 14.0-18.0 g/dL Hematocrit 38.7 42-52 % Mean Corpuscular Volume 95.1 80-100 fL Mean Corpuscular Hemoglobin 32.4 25-34 pg Mean Corpuscular Hemoglobin Concent 34.1 32-36 g/dl Platelet Count 222 130-400 K/uL Mean Platelet Volume 9.2 7.4-10.4 fL Neutrophils (%) (Auto) 74.8 % Lymphocytes (%) (Auto) 15.9 % Monocytes (%) (Auto) 7.0 % Eosinophils (%) (Auto) 1.6 % Basophils (%) (Auto) 0.5 % Neutrophils # (Auto) 9.34 1.4-6.5 K/uL Lymphocytes # (Auto) 1.99 1.2-3.4 K/uL Monocytes # (Auto) 0.88 0.11-0.59 K/uL Eosinophils # (Auto) 0.20 0-0.5 K/uL Basophils # (Auto) 0.06 0-0.2 K/uL RDW Standard Deviation 46.1 36.4-46.3 fL RDW Coefficient of Variation 13.3 11.5-14.5 % Immature Granulocyte % (Auto) 0.2 % Immature Granulocyte # (Auto) 0.03 0.00-0.02 K/uL Sodium Level 142 136-145 mmol/L Potassium Level 3.6 3.5-5.1 mmol/L Chloride Level 111 98-107 mmol/L Carbon Dioxide Level 25 21-32 mmol/L Anion Gap 6.0 3-11 mmol/L Blood Urea Nitrogen 10 7-18 mg/dl Creatinine 1.00 0.60-1.40 mg/dl Est Creatinine Clear Calc Drug Dose 86.4 ml/min Estimated GFR () 102.0 Estimated GFR (Non- 88.0 BUN/Creatinine Ratio 10.0 10- Random Glucose 106 70-99 mg/dl Calcium Level 8.3 8.5-10.1 mg/dl Magnesium Level 1.8 1.8-2.4 mg/dl Assessment & Plan 03/26/17- plan to schedule possible surgery through office and longterm d/c when ok with med service 03/25/17- Pt is stable to have elective hernia surgery- does not need to be done this weekend. Consider d/c back to [facility] and set up through office and [facility] 03/25/17- Pt is stable to have elective hernia surgery- does not need to be done this weekend. Consider d/c back to [facility] and set up through office and [facility]
[2017-03-26] MEDS: OXYCODONE/ACETAMINOPHEN 5-325 TAB PO PRN ×2 (15:06→20:16)
[2017-03-26 15:38] VITALS: BP 126/71; PULSE 74; TEMP 37; O2SAT 97
--- NOTE | 2017-03-26 17:24 | Progress Note ---
Internal Med Progress Note Date of Service: Mar 26, 2017. Provider Documentation: SUBJECTIVE: complains of chest pains still has abdominal pain afebrile no nausea tolerating diet ok OBJECTIVE: Vital Signs-as noted below Exam: General-alert and awake. Not in distress ENT-normal hearing Neck-no neck masses Lungs-cta b/l no wheezing present no crackles Heart-s1 and s2 heard regular rate and rhythm no murmurs Abdomen-soft bowel sounds present mild diffuse tender no distension Extremities-no erythema no edema Neuro-alert and awake moves extremities Lab data as noted below. ASSESSMENT & PLAN: 1. This is a 51-year-old male who presents with abdominal pain. CAT scan shows fat containing of small umbilical hernia and supraumbilical hernias. As per patient, they are there since last 12 years and bothering him. He wants them to be fixed. last two days pain has been worse. tolerating diet fine Surgery recommends elective surgery 2. Hyperlipidemia. The patient says he is not taking any medications. 3. Intermittent chest pains. On imdur says cardiac cath was done and it was fine. having chest pain today will f/u ekg 4. Deep vein thrombosis prophylaxis: scds 5. Disposition: Observation on medical floor. Expected [facility] to [facility], possibly in am.. Level 1 full code Vital Signs: Date Time Temp Pulse Resp B/P (MAP) Pulse Ox O2 Delivery O2 Flow Rate FiO2 03/26/17 15:38 37.0 74 18 126/71 (89) 97 Room Air 03/26/17 07:50 Room Air 03/26/17 07:37 36.8 74 16 123/75 (91) 97 Room Air 03/25/17 23:55 Room Air 03/25/17 23:45 36.7 74 16 124/70 (88) 95 Room Air Lab Results: Results Past 24 Hours Test 03/26/17 05:36 03/26/17 15:08 Range/Units White Blood Count 12.50 4.8-10.8 K/uL Red Blood Count 4.07 4.7-6.1 M/uL Hemoglobin 13.2 14.0-18.0 g/dL Hematocrit 38.7 42-52 % Mean Corpuscular Volume 95.1 80-100 fL Mean Corpuscular Hemoglobin 32.4 25-34 pg Mean Corpuscular Hemoglobin Concent 34.1 32-36 g/dl Platelet Count 222 130-400 K/uL Mean Platelet Volume 9.2 7.4-10.4 fL Neutrophils (%) (Auto) 74.8 % Lymphocytes (%) (Auto) 15.9 % Monocytes (%) (Auto) 7.0 % Eosinophils (%) (Auto) 1.6 % Basophils (%) (Auto) 0.5 % Neutrophils # (Auto) 9.34 1.4-6.5 K/uL Lymphocytes # (Auto) 1.99 1.2-3.4 K/uL Monocytes # (Auto) 0.88 0.11-0.59 K/uL Eosinophils # (Auto) 0.20 0-0.5 K/uL Basophils # (Auto) 0.06 0-0.2 K/uL RDW Standard Deviation 46.1 36.4-46.3 fL RDW Coefficient of Variation 13.3 11.5-14.5 % Immature Granulocyte % (Auto) 0.2 % Immature Granulocyte # (Auto) 0.03 0.00-0.02 K/uL Sodium Level 142 136-145 mmol/L Potassium Level 3.6 3.5-5.1 mmol/L Chloride Level 111 98-107 mmol/L Carbon Dioxide Level 25 21-32 mmol/L Anion Gap 6.0 3-11 mmol/L Blood Urea Nitrogen 10 7-18 mg/dl Creatinine 1.00 0.60-1.40 mg/dl Est Creatinine Clear Calc Drug Dose 86.4 ml/min Estimated GFR () 102.0 Estimated GFR (Non- 88.0 BUN/Creatinine Ratio 10.0 10-20 Random Glucose 106 70-99 mg/dl Calcium Level 8.3 8.5-10.1 mg/dl Magnesium Level 1.8 1.8-2.4 mg/dl Troponin I < 0.015 0-0.045 ng/ml
[2017-03-26] MEDS: FAMOTIDINE 20 MG TAB PO SCH (20:31)
[2017-03-26] MEDS: NORTRIPTYLINE HCL 25 MG CAP PO SCH (20:31)
[2017-03-26 23:31] VITALS: BP 145/82; PULSE 75; TEMP 36.7; O2SAT 98
[2017-03-27] MEDS: SODIUM CHLORIDE 0.9% 1000ML 1,000 ML IV SCH (05:35)
[2017-03-27 07:00] LABS: BASO % 0.6 %; BASO ABS # 0.05 K/uL (0-0.2); COMPLETE YES; EOS % 2.5 %; HEMATOCRIT 38.1 % (42-52); IG% 0.2 %; LYMPH % 23.1 %; LYMPH ABS # 1.87 K/uL (1.2-3.4); MEAN CELL VOLUME 93.6 fL (80-100); MEAN CORPUSCULAR HEMOGLOBIN 32.7 pg (25-34); MEAN CORPUSCULAR HGB CONC 34.9 g/dl (32-36); MEAN PLATELET VOLUME 8.9 fL (7.4-10.4); MONO % 7.3 %; NEUT % 66.3 %; PLATELET COUNT 214 K/uL (130-400); RED BLOOD COUNT 4.07 M/uL (4.7-6.1); WHITE BLOOD COUNT 8.09 K/uL (4.8-10.8)
[2017-03-27 07:13] VITALS: BP 159/93; PULSE 70; TEMP 36.4; O2SAT 97
[2017-03-27 07:37] LABS: BUN/CREATININE RATIO 11.4 (10-20); CALCIUM 7.9 mg/dl (8.5-10.1); CREATININE 1.07 mg/dl (0.60-1.40); MAGNESIUM 2.1 mg/dl (1.8-2.4)
[2017-03-27] MEDS: OXYCODONE/ACETAMINOPHEN 5-325 TAB PO PRN (07:42)
[2017-03-27 09:33] VITALS: BP 148/82; PULSE 68
[2017-03-27] MEDS: ISOSORBIDE MONONITRATE 30 MG TABCR PO SCH (09:34)
[2017-03-27] MEDS: FAMOTIDINE 20 MG TAB PO SCH (09:34)
--- NOTE | 2017-03-27 11:31 | Discharge Instructions ---
Discharge Instructions Date of Service Mar 27, 2017. Admission Reason for Admission: Abdominal Pain Discharge Discharge Diagnosis / Problem: ABDOMINAL PAIN, CHEST PAIN Discharge Goals Goal(s): Decrease discomfort, Improve function Activity Recommendations Activity Limitations: resume your previous activity . Instructions / Follow-Up Instructions / Follow-Up FOLLOWUP WITH FAMILY DOCTOR ONE WEEK FOLLOWUP WITH GENERAL SURGERY 1-2 WEEKS Current Hospital Diet Patient's current hospital diet: Regular Diet Discharge Diet Recommended Diet: Regular Diet, AHA Diet (Heart Healthy) Pending Studies Studies pending at discharge: no Medical Emergencies . Who to Call and When: Medical Emergencies: If at any time you feel your situation is an emergency, please call 911 immediately. . Non-Emergent Contact Non-Emergency issues call your: Primary Care Provider . . "Provider Documentation" section prepared by Constantine Rivas. . VTE Core Measure Inpt VTE Proph given/why not?: SCD's
[2017-03-27 14:04] VITALS: BP 148/82; PULSE 68; TEMP 36.4; O2SAT 97
--- NOTE | 2017-03-27 16:08 | Progress Note ---
Internal Med Progress Note Date of Service: Mar 27, 2017. Provider Documentation: SUBJECTIVE: resting comfortably tolerating diet fine still has some abdominal pain but better ok for discharge OBJECTIVE: Vital Signs-as noted below Exam: General-alert and awake. Not in distress ENT-normal hearing Neck-no neck masses Lungs-cta b/l no wheezing present no crackles Heart-s1 and s2 heard regular rate and rhythm no murmurs Abdomen-soft bowel sounds present mild diffuse tender no distension Extremities-no erythema no edema Neuro-alert and awake moves extremities Lab data as noted below. ASSESSMENT & PLAN: 1. This is a 51-year-old male who presents with abdominal pain. CAT scan shows fat containing of small umbilical hernia and supraumbilical hernias. As per patient, they are there since last 12 years and bothering him. He wants them to be fixed. last two days pain has been worse. tolerating diet fine Surgery recommends elective surgery discharged to f/u with surgery 2. Hyperlipidemia. The patient says he is not taking any medications. 3. Intermittent chest pains. On imdur says cardiac cath was done and it was fine. having chest pain today ekg and troponin negative discharged Vital Signs: Date Time Temp Pulse Resp B/P (MAP) Pulse Ox O2 Delivery O2 Flow Rate FiO2 03/27/17 14:04 36.4 68 17 97 Room Air 03/27/17 09:33 68 148/82 (104) 03/27/17 07:40 Room Air 03/27/17 07:13 36.4 70 17 159/93 (115) 97 Room Air 03/26/17 23:35 Room Air 03/26/17 23:31 36.7 75 16 145/82 (103) 98 Room Air 03/26/17 19:58 Room Air Lab Results: Results Past 24 Hours Test 03/27/17 06:40 03/27/17 06:42 Range/Units Sodium Level 144 136-145 mmol/L Potassium Level 4.0 3.5-5.1 mmol/L Chloride Level 113 98-107 mmol/L Carbon Dioxide Level 23 21-32 mmol/L Anion Gap 8.0 3-11 mmol/L Blood Urea Nitrogen 12 7-18 mg/dl Creatinine 1.07 0.60-1.40 mg/dl Est Creatinine Clear Calc Drug Dose 80.8 ml/min Estimated GFR () 94.0 Estimated GFR (Non- 81.1 BUN/Creatinine Ratio 11.4 10-20 Random Glucose 101 70-99 mg/dl Calcium Level 7.9 8.5-10.1 mg/dl Magnesium Level 2.1 1.8-2.4 mg/dl White Blood Count 8.09 4.8-10.8 K/uL Red Blood Count 4.07 4.7-6.1 M/uL Hemoglobin 13.3 14.0-18.0 g/dL Hematocrit 38.1 42-52 % Mean Corpuscular Volume 93.6 80-100 fL Mean Corpuscular Hemoglobin 32.7 25-34 pg Mean Corpuscular Hemoglobin Concent 34.9 32-36 g/dl Platelet Count 214 130-400 K/uL Mean Platelet Volume 8.9 7.4-10.4 fL Neutrophils (%) (Auto) 66.3 % Lymphocytes (%) (Auto) 23.1 % Monocytes (%) (Auto) 7.3 % Eosinophils (%) (Auto) 2.5 % Basophils (%) (Auto) 0.6 % Neutrophils # (Auto) 5.36 1.4-6.5 K/uL Lymphocytes # (Auto) 1.87 1.2-3.4 K/uL Monocytes # (Auto) 0.59 0.11-0.59 K/uL Eosinophils # (Auto) 0.20 0-0.5 K/uL Basophils # (Auto) 0.05 0-0.2 K/uL RDW Standard Deviation 45.7 36.4-46.3 fL RDW Coefficient of Variation 13.3 11.5-14.5 % Immature Granulocyte % (Auto) 0.2 % Immature Granulocyte # (Auto) 0.02 0.00-0.02 K/uL
--- NOTE | 2017-03-27 17:20 | Discharge Summary ---
Discharge Summary Date of Service Mar 27, 2017. Discharge Summary Admission Date: Mar 24, 2017 at 18:51 Discharge Date: Mar 27, 2017 Discharge Disposition: Home ([facility]CTION[facility]) Principal Diagnosis: ABDOMINAL PAIN CHEST PAIN Secondary Diagnoses/Problems: hyperlipidemia, questionable high blood pressure and abdominal hernias Procedures: CT ABD/PELVIS: 1. There are no acute infectious or inflammatory findings in the abdomen or pelvis. 2. Emphysema. 3. There is a small fat-containing umbilical hernia and a large fat-containing supraumbilical hernia. No bowel or fluid is seen within the hernia sacs. 4. There is an 8.6 cm lesion in the right lobe of the liver. Although incompletely characterized, the enhancement kinetics strongly favor a benign hemangioma. 2 additional smaller lesions also likely represent hemangiomas. If definitive characterization is desired a nonemergent MRI of the liver would be appropriate. 5. There is a 2.0 cm bladder diverticulum. Consultations: GENERAL SURGERY Medication Reconciliation Continued Medications: Atorvastatin (Lipitor) 20 Mg Tab 20 MG PO DAILY, TAB Isosorbide Mononitrate Ext Rel (Imdur Ext Rel) 30 Mg Ertab 30 MG PO QAM, TAB Nortriptyline Hcl (Pamelor) 75 Mg Cap 75 MG PO HS, CAP Admission Information HPI (per Admitting provider): This is a 51-year-old male coming from the correctional facility with past medical history significant for hyperlipidemia, questionable high blood pressure and abdominal hernias presents with abdominal pain. The patient says he has abdominal pain on and off since 12 years because of his hernias. In the last 2-3 days, he is having severe 10/10 abdominal pain radiating from center to periphery of his abdomen. Denies any nausea or vomiting. Had normal bowel movements yesterday. Currently, resting comfortably and hemodynamically stable. He has headaches, no blurred vision, no cough, has some sore throat, has some difficulty swallowing chronically. No chest pain, no shortness of breath, no fever, no chills, has complaints of some mild rash in back of the head. No swelling in the legs. Normal bowel and bladder movements. No blood in the stools or blood in the urine Physical Exam (per Admitting): GENERAL: The patient is of moderate build, not in distress. VITAL SIGNS: Temperature 37.2, pulse 83, respiratory rate 18, blood pressure 154/108, oxygen 99% on room air. HEENT: No pallor, no icterus. Pupils equal, round, and reactive to light. NECK: No JVD, no neck masses, no carotid bruits. CARDIOVASCULAR: S1, S2 heard, regular rate and rhythm, no murmur, no gallop. RESPIRATORY SYSTEM: Clear to auscultation bilaterally. No wheezing, no crackles. ABDOMEN: Soft, bowel sounds present. Mild diffuse tenderness, no rigidity, no guarding. No distention. CENTRAL NERVOUS SYSTEM: Cranial nerves II-XII grossly intact. Nonfocal. EXTREMITIES: No edema, no erythema. Hospital Course 1. This is a 51-year-old male who presents with abdominal pain. CAT scan shows fat containing of small umbilical hernia and supraumbilical hernias. As per patient, they are there since last 12 years and bothering him. He wants them to be fixed. last two days pain has been worse. tolerating diet fine Surgery recommends elective surgery discharged to f/u with surgery 2. Hyperlipidemia. The patient says he is not taking any medications. 3. Intermittent chest pains. On imdur says cardiac cath was done and it was fine. having chest pain today ekg and troponin negative discharged Total time spent on discharge = 35MINUTES This includes examination of the patient, discharge planning, medication reconciliation, and communication with other providers. Discharge Instructions Discharge Instructions Date of Service Mar 27, 2017. Admission Reason for Admission: Abdominal Pain Discharge Discharge Diagnosis / Problem: ABDOMINAL PAIN, CHEST PAIN Discharge Goals Goal(s): Decrease discomfort, Improve function Activity Recommendations Activity Limitations: resume your previous activity . Instructions / Follow-Up Instructions / Follow-Up FOLLOWUP WITH FAMILY DOCTOR ONE WEEK FOLLOWUP WITH GENERAL SURGERY 1-2 WEEKS Current Hospital Diet Patient's current hospital diet: Regular Diet Discharge Diet Recommended Diet: Regular Diet, AHA Diet (Heart Healthy) Pending Studies Studies pending at discharge: no Medical Emergencies . Who to Call and When: Medical Emergencies: If at any time you feel your situation is an emergency, please call 911 immediately. . Non-Emergent Contact Non-Emergency issues call your: Primary Care Provider . . "Provider Documentation" section prepared by Constantine Rivas. . VTE Core Measure Inpt VTE Proph given/why not?: SCD's
== END 2017-03-27 14:34 | disposition home or self-care (01) ==
LOC: EDBD 16:04 → C.EDC 16:06 → C.MSW 18:51 → ENRESERV 19:19
PROVIDERS: ADMIT Internal Medicine; ATTEND Internal Medicine
DX: K42.9 Umbilical hernia without obstruction or gangrene (principal); K43.9 Ventral hernia without obstruction or gangrene; R07.9 Chest pain, unspecified; E78.5 Hyperlipidemia, unspecified; Z79.899 Other long term (current) drug therapy

== ENCOUNTER 2020-07-26 00:11 | Observation (INO) ==
[2020-07-26] MEDS ORDERED: NITROGLYCERIN SL 0.4 MG/TAB TAB SL STA (00:21)
--- NOTE | 2020-07-26 00:27 | Emergency Department Note ---
Impression & Plan Left-sided chest pain, Hernia, umbilical ED Provider Note Name: DONNY Gutiérrez [id number] ILEANA Age: 54 Sex: M Arrives Via: Ambulance Informant: Patient, EMS, Records ED Provider: John Jo MD Chief Complaint: Chest Pain Impression: Left-Sided Chest Pain Umbilical Hernia Medical Decision Makin yr old male with history DLP, HTN, CAD, arrives for evaluation left chest pain which he states is similar to previous heart attack (though admits no stents in past). He was given ASA by EMS and SLNTG which was further given by us. Clearly looks comfortable and in no distress but requesting IV pain medications which I do not feel are indicated at this time. However, given what appears to be cardiac history, and description of pain will bring in for cardiac rule out. He does have umbilical hernia which he is complaining of pain but exam of this is benign and easily reducible. Prior Medical Record and Triage/Nursing Notes reviewed by Me Additional history obtained from chart and [facility] records Differentials:Cardiac ischemia, aortic dissection, pulmonary embolism, pneumothorax, pneumonia, pericarditis, myocarditis, esophageal rupture, GERD, cholecystitis, pancreatitis, musculoskeletal, as well as other pathologies. Vital Signs: reviewed and remarkable for no significant abnormalities Interventions: SLNTG Labs:Reviewed and remarkable for no significant abnormalities Imaging:X ray results are stated below per my interpretation: Chest: 1 view: No infiltrate, no effusion, normal cardiac border. EKG:Per My Interpretation: Indication Chest Pain: Sinus Tach 103 bpm, qtc 442. No Ectopy. Inferior/Lateral ST depression . Compared to EKG 08/08/[address] depressions were there prior but are now more pronounced Cardiac/Tele Monitoring: Cardiac Monitoring: An Order was placed for continuous cardiac monitoring. The monitor shows a rate of 100-105 with a sinus tach rhythm. Consults:Dr Wily PRUITT Hospitalist for further management Plan: Disposition: Hospitalization Condition: Good History of Present Illness:54 yr old male arrives for evaluation of chest pain. Patient notes he was in his cell this evening when he developed substernal chest pressure. Radiation to left shoulder. Associated with mild SOB and lightheaded. No syncope, nausea, vomiting, palpitations, abdominal pain, back pain, leg swelling, calf pain, fevers, chills, cough, headache, weakness, rashes nor other symptoms. Notes chronic umbilical hernia which has been causing some discomfort the last few months. Notes history of DLP and CAD with cath at [facility] in 2009. [facility] lives in [facility] and was sent here for evaluation due to chest pain and history of Unstable Angina. He has no sick contacts. He has not had COVID and denies recent. ROS: See above HPI for pertinent positives & negatives. A total of 10 systems reviewed and were otherwise negative. Past Medical History:CAD, Hyperlipidemia, Anxiety Past Surgical History:Heart Cath without stents Family History:No medical issues Social History:prisoner, e-cigarettes, no etoh Home Medications:See Below Allergies:NKDA Vitals:Blood Pressure: 156/92, Pulse 67, RR 20, T 36.5C, O2 97% on RA Physical Exam: GENERAL: Patient is anxious appearing and in minimal distress. EYES: No scleral icterus, unremarkable pupils. ENT: Mucous membranes moist, no nasal congestion. NECK: No masses appreciated, nomeningismus, trachea is midline. RESPIRATORY: No dyspnea. Clear to auscultation and equal bilaterally. No wheeze, no rhonchi. CARDIOVASCULAR: Regular rate and rhythm.No murmurs, rubs, gallops appreciated. GASTROINTESTINAL: Easily reducible umbilical hernia, otherwise abdomen soft, non-tender, no peritonitis.Bowel sounds positive.No masses appreciated. BACK: No midline tenderness, no CVA tenderness EXTREMITIES: Normal motion all extremities, no cyanosis, no edema. NEUROLOGIC: Alert and oriented, no acute motor or sensory deficits, no focal w eakness, cranial nerves grossly intact. SKIN: No rash, no jaundice, no diaphoresis. PSYCH: Appropriate GCS: 15 ED Course: Times/Reassessments: Stable, looks well and in no distress John Jo MD Past Med/Surg History Medical History (Updated 07/26/20 @ 08:31 by John Jo MD) Heart attack Surgical History (Updated 03/13/20 @ 12:20 by Marge Coelho RN) No pertinent past surgical history Social History Smoking Status: Current every day smoker Cigarettes Per Day: 8; Hx Alcohol Use: No Hx Substance Use: No Preferred Language: Bolivian Communication Ability: Effective Commodity Management Specialist Required: No Current Living Situation: Other Current Living Situation Comment: [facility] Assistive Devices: Denture - Upper, Denture - Lower and Glasses Assistive Devices Comment: Dentures, glasses at [facility] Allergies Allergies Allergy/AdvReac Type Severity Reaction Status Date / Time No Known Allergies Allergy Verified 07/26/20 00:28 Home Meds Home Medications Medication Instructions Recorded Confirmed aspirin [Aspirin Childrens] 81 mg PO DAILY 08/08/19 07/26/20 isosorbide mononitrate 60 mg PO HS 08/08/19 07/26/20 mirtazapine 45 mg PO HS 08/08/19 07/26/20 nitroglycerin 0.4 mg SUBLINGUAL DIRECTED PRN 08/08/19 07/26/20 rosuvastatin 20 mg PO DAILY 08/08/19 07/26/20 acetaminophen [Tylenol Extra 1,000 mg PO BID PRN 07/26/20 07/26/20 Strength] diclofenac sodium 50 mg PO TID 07/26/20 07/26/20 duloxetine 40 mg PO BID 07/26/20 07/26/20 hydroxyzine HCl 75 mg PO HS 07/26/20 07/26/20 loxapine succinate 20 mg PO HS 07/26/20 07/26/20 Results & Data (ED) Vital Signs Vital Signs - 24 hr 07/26/20 00:31 07/26/20 00:32 07/26/20 01:00 Temperature 36.9 C Temperature Source Oral Pulse Rate 101 H 107 H 82 Pulse Rate from SpO2 Sensor 100 H 81 Respiratory Rate 15 18 15 Respiratory Effort / Characteristics Non-Labored Spontaneous Respiratory Depth Normal Blood Pressure 140/87 Blood Pressure Mean 104 Pulse Oximetry 95 96 96 Oxygen Delivery Method Room Air Room Air Room Air Sepsis New/Unexplained Change in Mental Status N/A Sepsis Action Taken by Nursing No Action Required 07/26/20 01:13 07/26/20 01:30 07/26/20 01:31 Temperature Temperature Source Pulse Rate 76 80 80 Pulse Rate from SpO2 Sensor 77 79 79 Respiratory Rate 16 20 22 Respiratory Effort / Characteristics Respiratory Depth Blood Pressure 131/86 130/78 Blood Pressure Mean 101 95 Pulse Oximetry 96 95 95 Oxygen Delivery Method Room Air Room Air Room Air Sepsis New/Unexplained Change in Mental Status Sepsis Action Taken by Nursing 07/26/20 02:01 Temperature Temperature Source Pulse Rate 76 Pulse Rate from SpO2 Sensor 77 Respiratory Rate 18 Respiratory Effort / Characteristics Respiratory Depth Blood Pressure Blood Pressure Mean Pulse Oximetry 97 Oxygen Delivery Method Room Air Sepsis New/Unexplained Change in Mental Status Sepsis Action Taken by Nursing Laboratory Data Result diagrams: 07/26/20 00:57 07/26/20 06:42 Lab Results 07/26/20 07/26/20 07/26/20 Range/Units 00:57 00:57 00:57 WBC 7.87 (4.8-10.8) K/uL RBC 4.51 L (4.7-6.1) M/uL Hgb 14.0 (14.0-18.0) g/dL Hct 40.4 L (42-52) % MCV 89.6 (80-100) fL MCH 31.0 (25-34) pg MCHC 34.7 (32-36) g/dL RDW Std Deviation 43.1 (36.4-46.3) fL RDW Coeff of Marialuisa 13.3 (11.5-14.5) % Plt Count 230 (130-400) K/uL MPV 8.8 (7.4-10.4) fL Immature Gran % (Auto) 0.6 % Neut % (Auto) 53.8 % Lymph % (Auto) 36.8 % [place] % (Auto) 6.0 % Eos % (Auto) 2.2 % Baso % (Auto) 0.6 % Neut # (Auto) 4.23 (1.4-6.5) K/uL Lymph # (Auto) 2.90 (1.2-3.4) K/uL [place] # (Auto) 0.47 (0.11-0.59) K/uL Eos # (Auto) 0.17 (0-0.5) K/uL Baso # (Auto) 0.05 (0-0.2) K/uL Immature Gran # (Auto) 0.05 H (0.00-0.02) K/uL PT 9.8 (9.0-12.0) Seconds INR 1.0 (0.9-1.1) APTT 25.6 (21.0-31.0) Seconds PTT Ratio 1.0 D-Dimer 490 (0-500) ug/L FEU Sodium 143 (136-145) mmol/L Potassium 3.7 (3.5-5.1) mmol/L Chloride 110 H (98-107) mmol/L Carbon Dioxide 25 (21-32) mmol/L Anion Gap 8.0 (3-11) BUN 13 (7-18) mg/dl Creatinine 1.25 (0.6-1.4) mg/dl Est Cr Clr Drug Dosing 75.1 ml/min Est GFR ( Amer) 76.2 Est GFR (Non-Af Amer) 65.8 BUN/Creatinine Ratio 10.1 (10-20) Glucose 93 (70-99) mg/dl Calcium 8.7 (8.5-10.1) mg/dl Magnesium 2.2 (1.8-2.4) mg/dl Total Bilirubin 0.4 (0.2-1) mg/dl Direct Bilirubin < 0.1 (0-0.2) mg/dl AST 25 (15-37) U/L ALT 42 (12-78) U/L Alkaline Phosphatase 93 (45-117) U/L Troponin I < 0.015 (0-0.045) ng/ml Total Protein 7.1 (6.4-8.2) gm/dl Albumin 3.9 (3.4-5.0) gm/dl Specimen Hemolysis COVID-19 Eval Order SARS-CoV-2, RNA, NAAT (NEGATIVE) 07/26/20 07/26/20 Range/Units 01:15 01:15 WBC (4.8-10.8) K/uL RBC (4.7-6.1) M/uL Hgb (14.0-18.0) g/dL Hct (42-52) % MCV (80-100) fL MCH (25-34) pg MCHC (32-36) g/dL RDW Std Deviation (36.4-46.3) fL RDW Coeff of Marialuisa (11.5-14.5) % Plt Count (130-400) K/uL MPV (7.4-10.4) fL Immature Gran % (Auto) % Neut % (Auto) % Lymph % (Auto) % [place] % (Auto) % Eos % (Auto) % Baso % (Auto) % Neut # (Auto) (1.4-6.5) K/uL Lymph # (Auto) (1.2-3.4) K/uL [place] # (Auto) (0.11-0.59) K/uL Eos # (Auto) (0-0.5) K/uL Baso # (Auto) (0-0.2) K/uL Immature Gran # (Auto) (0.00-0.02) K/uL PT (9.0-12.0) Seconds INR (0.9-1.1) APTT (21.0-31.0) Seconds PTT Ratio D-Dimer (0-500) ug/L FEU Sodium (136-145) mmol/L Potassium (3.5-5.1) mmol/L Chloride (98-107) mmol/L Carbon Dioxide (21-32) mmol/L Anion Gap (3-11) BUN (7-18) mg/dl Creatinine (0.6-1.4) mg/dl Est Cr Clr Drug Dosing ml/min Est GFR ( Amer) Est GFR (Non-Af Amer) BUN/Creatinine Ratio (10-20) Glucose (70-99) mg/dl Calcium (8.5-10.1) mg/dl Magnesium (1.8-2.4) mg/dl Total Bilirubin (0.2-1) mg/dl Direct Bilirubin (0-0.2) mg/dl AST (15-37) U/L ALT (12-78) U/L Alkaline Phosphatase (45-117) U/L Troponin I (0-0.045) ng/ml Total Protein (6.4-8.2) gm/dl Albumin (3.4-5.0) gm/dl Specimen Hemolysis COVID-19 Eval Order Covid19 IDNow atMPAC SARS-CoV-2, RNA, NAAT NEGATIVE (NEGATIVE) Administered Medications Acetaminophen (Acetaminophen 500 Mg Tab) 500 mg PO BID PRN PRN Reason: Pain Stop: 08/25/20 03:52 Last Admin: 07/26/20 06:13 Dose: 500 mg Documented by: [id number] Discontinued Medications Al Hydrox/Mg Hydrox/Simethicone 18 ml/ Lidocaine HCl 6 ml/ BARCODE IDENTIFIER 1 ea 0 ml PO ONE ONE Stop: 07/26/20 04:31 Last Admin: 07/26/20 04:39 Dose: 24 ml Documented by: [id number] Ioversol (Ioversol 100ml) 94 ml IV ONCE ONE Stop: 07/26/20 05:11 Last Admin: 07/26/20 05:11 Dose: 94 ml Documented by: [id number] Nitroglycerin (Nitroglycerin Sl 0.4 Mg/Tab Tab) 0.4 mg SL NOW STA Stop: 07/26/20 00:22 Last Admin: 07/26/20 00:28 Dose: 0.4 mg Documented by: [id number] Nitroglycerin (Nitroglycerin Sl 0.4 Mg/Tab Tab) 0.4 mg SL PRN PRN PRN Reason: chest pain Stop: 08/25/20 00:20 Last Admin: 07/26/20 04:45 Dose: 0.4 mg Documented by: [id number] Admin: 07/26/20 01:15 Dose: 0.4 mg Documented by: [id number] Nitroglycerin (Nitroglycerin Sl 0.4 Mg/Tab Tab) 0.4 mg SL ONE ONE Stop: 07/26/20 05:43 Last Admin: 07/26/20 05:57 Dose: 0.4 mg Documented by: [id number] Discharge Plan Visit Data Chief Complaint: Chest Pain Stated Complaint: CHEST PAIN/SOB/LIGHT HEADED ED Provider: John Jo Discharge Problem: Left-sided chest pain, Hernia, umbilical Patient Disposition: Admitted As Inpatient Discharge Instructions Interventions: ED Discharge Assessment Last Done: 07/26/20 03:06 Discharge Problem: Hernia, umbilical Qualifiers: Obstruction and gangrene presence: without obstruction or gangrene Qualified Code(s): K42.9 - Umbilical hernia without obstruction or gangrene
[2020-07-26 01:08] LABS: Basophils # (auto) 0.05 K/uL (0-0.2); Basophils % (auto) 0.6 %; Eosinophils # (auto) 0.17 K/uL (0-0.5); Eosinophils % (auto) 2.2 %; Hematocrit (blood only) 40.4 % (42-52); Immature Granulocytes # (auto) 0.05 K/uL (0.00-0.02); Immature Granulocytes % (auto) 0.6 %; Lymphocytes % (auto) 36.8 %; Mean Corpuscular Hgb Conc 34.7 g/dL (32-36); Mean Corpuscular Volume 89.6 fL (80-100); Mean Platelet Volume 8.8 fL (7.4-10.4); Monocytes # (auto) 0.47 K/uL (0.11-0.59); Neutrophils # (auto) 4.23 K/uL (1.4-6.5); Neutrophils % (auto) 53.8 %; Platelet Count 230 K/uL (130-400); RDW Coefficient of Variation 13.3 % (11.5-14.5); RDW Standard Deviation 43.1 fL (36.4-46.3); Red Blood Count 4.51 M/uL (4.7-6.1); White Blood Count 7.87 K/uL (4.8-10.8)
[2020-07-26] MEDS: NITROGLYCERIN SL 0.4 MG/TAB TAB SL PRN ×2 (01:15→04:45)
[2020-07-26 01:17] LABS: D Dimer 490 ug/L FEU (0-500); Partial Thromboplastin Time 25.6 Seconds (21.0-31.0); Prothrombin Time 9.8 Seconds (9.0-12.0)
[2020-07-26 01:29] LABS: Alanine Aminotransferase 42 U/L (12-78); Albumin Level 3.9 gm/dl (3.4-5.0); Alkaline Phosphatase 93 U/L (45-117); Aspartate Aminotransferase 25 U/L (15-37); BUN Creatinine Ratio 10.1 (10-20); Bilirubin Direct < 0.1 mg/dl (0-0.2); Bilirubin,Total 0.4 mg/dl (0.2-1); Blood Urea Nitrogen 13 mg/dl (7-18); Calcium 8.7 mg/dl (8.5-10.1); Carbon Dioxide 25 mmol/L (21-32); Chloride 110 mmol/L (98-107); Creatinine Clr Calc Pharmacy 75.1 ml/min; Est GFR (African American) 76.2; Est GFR (Non-African American) 65.8; Glucose 93 mg/dl (70-99); Magnesium 2.2 mg/dl (1.8-2.4); Potassium 3.7 mmol/L (3.5-5.1); Sodium 143 mmol/L (136-145); Total Protein 7.1 gm/dl (6.4-8.2); Troponin I < 0.015 ng/ml (0-0.045)
--- NOTE | 2020-07-26 02:55 | History & Physical Report ---
Date of Service July 26, 2020 Assessment & Plan Admission and Anticipated Discharge Date Admission Date: 54 yo M w/ pMHx. of extensive tobacco use, HTN, HLD, prior AR presenting with 10/10 chest pain radiating to his left arm and associated shortness of breath that improved with nitro. Concern for ACS given history and heart score of 6 (moderate). Vitals reassuring at this time. EKG with findings similar to [address] depression of V4,5,6 initial troponin > 0.015, COVID negative - admit for observation med-surg w/ tele - trend troponin - ordered Dobutamine stress test - ASA, statin, nitro available PRN Shortness of breath, lungs clear, saturating well on room air, nl. WBC - in the setting of chest pain Abdominal pain w/ Hx. of umbilical hernia previously seen by general surgery - ordered CT A/P w/ IV and oral contrast - NPO Psychiatric history - continue home meds which include: Hydroxyzine, Loxapine Succinate, and Mirtazapine Tobacco use - Nicotine patch 21 DVT: ambulation, scd's Diet: NPO Code: full code History of Present Illness Chief Complaint: chest pain Primary Care Provider: SEBASTIÁN Arriaza Mr. Tom Denson w/ a pMHx. of HTN, HLD, CAD s/p AR in 2009, extensive tobacco use, and ventral and umbilical hernia. He developed chest pain that has been constant, 10/10 sharp knife like and radiating to his left arm with numbness and tingling. The pain occurred when he was laying in bed. He was experiencing a lot of stress at the time thinking about how his hernia surgery had been canceled. He has associated shortness of breath. He has no sick contacts. He has used tobacco for 40 years at 5 packs per day. Prior to this episode of chest pain he was walking around He has a history of a ventral and umbilical hernia, previously seen by general surgery with Dr. Rojas. He was having pain which started prior to the chest pain around his umbilicus and radiating to his left testicle. The pain is similar to prior episodes of abdominal pain. He has not noticed any changes in his abdomen in size. No known COVID exposures, no sick contacts. no known allergies. LBM yesterday Allergies Allergy/AdvReac Type Severity Reaction Status Date / Time No Known Allergies Allergy Verified 07/26/20 00:28 Home Medications Medication Instructions Recorded Confirmed Type aspirin [Aspirin Childrens] 81 mg PO DAILY 08/08/19 07/26/20 History isosorbide mononitrate 60 mg PO HS 08/08/19 07/26/20 History mirtazapine 45 mg PO HS 08/08/19 07/26/20 History nitroglycerin 0.4 mg SUBLINGUAL DIRECTED PRN 08/08/19 07/26/20 History rosuvastatin 20 mg PO DAILY 08/08/19 07/26/20 History acetaminophen [Tylenol Extra 1,000 mg PO BID PRN 07/26/20 07/26/20 History Strength] diclofenac sodium 50 mg PO TID 07/26/20 07/26/20 History duloxetine 40 mg PO BID 07/26/20 07/26/20 History hydroxyzine HCl 75 mg PO HS 07/26/20 07/26/20 History loxapine succinate 20 mg PO HS 07/26/20 07/26/20 History Past Med/Surg History Medical History (Updated 07/26/20 @ 08:31 by John Jo MD) Heart attack Surgical History (Updated 03/13/20 @ 12:20 by Marge Coelho RN) No pertinent past surgical history Social History Smoking Status: Current every day smoker Cigarettes Per Day: 8; Hx Alcohol Use: No Hx Substance Use: No Preferred Language: Citizen Of [place] Communication Ability: Effective Inspecting Machine Adjuster Required: No Current Living Situation: Other Current Living Situation Comment: [facility] Assistive Devices: None Assistive Devices Comment: Dentures, glasses at correction Review of Systems Review of Systems: Constitutional: admits chills, nausea, fatigue, night sweats denies vomiting Head: admits headache, lightheadedness, blurry vision Neuro: denies syncope, dysarthria, dysphagia admits numbness, tingling, presyncope Cardiac: admits chest pain, denies edema, palpitations Pulm: denies cough, asthma hx, sputum production admits shortness of breath, pain on inspiration, wheezing GI: denies diarrhea, constipation : admits dysuria Physical Exam Constitutional: WD/WN, vitals as above no acute distress Eyes: PERRL, conjunctivae normal, anicteric sclerae ENMT: external ear and nose normal, oropharynx normal Neck: normal visual inspection Respiratory: normal respiratory effort, lungs clear to auscultation Cardiovascular: RRR, no murmur, no edema Chest (Breasts): normal inspection/palpation of breasts Gastrointestinal (Abdomen): distended abdomen with normal bowel sounds tender to palpation in the epigastric, periumbilical, suprapubic area not guarding Skin: no rashes, warm and dry Neurologic: CN's II-XI intact bilaterally and moves all extremities; no focal motor deficits and not confused Psychiatric: A+Ox3, euthymic affect Results & Data Results & Data ([facility]) Vital Signs (Past 12 Hours) Vital Signs Temp Pulse Resp BP Pulse Ox 07/26/20 02:01 76 18 97 07/26/20 01:31 80 22 95 07/26/20 01:30 80 20 130/78 95 07/26/20 01:13 76 16 131/86 96 07/26/20 01:00 82 15 96 07/26/20 00:32 36.9 C 107 H 18 140/87 96 07/26/20 00:31 101 H 15 95 CBC Results Results Complete Blood Count Results: RBC 4.51 M/uL (4.7-6.1) L 07/26/20 WBC 7.87 K/uL (4.8-10.8) 07/26/20 Hgb 14.0 g/dL (14.0-18.0) 07/26/20 Hct 40.4 % (42-52) L 07/26/20 Plt Count 230 K/uL (130-400) 07/26/20 Chemistry (BMP) Results BMP Results: Sodium 142 mmol/L (136-145) 07/26/20 Potassium 3.6 mmol/L (3.5-5.1) 07/26/20 Chloride 108 mmol/L (98-107) H 07/26/20 BUN 12 mg/dl (7-18) 07/26/20 Creatinine 1.24 mg/dl (0.6-1.4) 07/26/20 Glucose 104 mg/dl (70-99) H 07/26/20 Supervising Physician Co-Signing Physician Notes Patient seen and examined, chart reviewed, case discussed with Dr. Henao and I agree with his assessment and plan as above. Briefly, patient is a 54yo male presenting with chest pain. History of tobacco use, HTN, HLP, CAD with prior AR. On exam patient is afebrile, HD stable, NAD Skin - no rash HEENT - NC/AT, PERRL Heart - +S1/S2, regular Lungs - CTA Abd - +BS, soft, ventral hernia, tender to palpation, no rebound, non-acute findings Ext- No edema Labs and images reviewed Assessment/Plan - -Observation -Trend troponin -ASA, Statin, Nitro -Remainder of plan as above Resident Activity Tracking Resident Involvement: Resident Care Provided Care Provided: Adult Hospital Medicine
[2020-07-26] MEDS ORDERED: POLYETHYLENE (MIRALAX) 17 GM PACK PO PRN (03:38)
[2020-07-26] MEDS ORDERED: ACETAMINOPHEN 500 MG TAB PO PRN (03:53)
[2020-07-26] MEDS ORDERED: ALUMINUM/MAGNESIUM SUSP 18 ML, LIDOCAINE HCL VISCOUS 2% 6 ML, BARCODE IDENTIFIER 1 EA PO ONE ×2 (04:30→13:48)
[2020-07-26] MEDS ORDERED: IOVERSOL 100ml IV ONE (05:10)
[2020-07-26] MEDS ORDERED: NITROGLYCERIN SL 0.4 MG/TAB TAB SL ONE (05:42)
--- NOTE | 2020-07-26 06:48 | CT Scan Report ---
CT abd pelvis oral and IV con CLINICAL HISTORY: Diffuse abdominal pain COMPARISON STUDY: 10/23/2018 TECHNIQUE: The patient was scanned following administration of dilute oral contrast, and in a dynamic helical fashion during intravenous administration of 94 cc of Optiray 320 A dose lowering technique was utilized adhering to the principles of ALARA. CT DOSE: 529.45 mGy.cm FINDINGS: Lower chest: There are mild dependent basilar atelectatic changes. Underlying emphysema is suspected. Liver: There is a 9 cm right hepatic lobe mass with nodular peripheral enhancement. This is consisten t with HIV hemangioma. There is no ductal dilatation. The hepatic and portal veins appear patent. Gallbladder: Unremarkable. Spleen: Normal in size and attenuation. Pancreas: Unremarkable. Adrenal glands: Unremarkable. Kidneys: There are 2 fat-containing left renal masses measuring 12 mm and 10 mm respectively. These a re indicative of angiomyolipomas. There is no hydronephrosis. Bowel: There are no transition zones indicate bowel obstruction. There is colonic diverticulosis. The re is no evidence of acute diverticulitis. The appendix appears normal. Peritoneum: There is no intraperitoneal free air or abdominal ascites. There is a small fat-containin g left inguinal hernia. There is a fat-containing ventral hernia and fat-containing supraumbilical ve ntral hernia. Vasculature: The abdominal aorta is normal in course and caliber. Adenopathy: None. Pelvic viscera: The bladder is distended. There is a left posterior lateral bladder diverticulum. Skeletal structures: No destructive osseous lesions are seen. IMPRESSION: 1. No evidence of bowel obstruction. No evidence of free air 2. Normal appendix. 3. Diverticulosis. No evidence of acute diverticulitis 4. Left renal angiomyolipomas 5. 9 cm hepatic hemangioma 6. Fat-containing abdominal wall hernias. 7. Bladder diverticulum ACT 112: Negative or not required by law. Electronically signed by: Hossein Hatfield M.D. 07/26/2020 6:46 AM
--- NOTE | 2020-07-26 07:30 | XRay Report ---
XR chest 1V portable CLINICAL HISTORY: Atypical chest pain and shortness of breath COMPARISON STUDY: No previous studies for comparison. FINDINGS: The heart is the upper limits of normal in size. There is no failure. There are slightly pr ominent right basilar markings, atelectatic versus infectious/inflammatory. There is no lobar consoli dation. There are no pleural effusions.[ IMPRESSION: 1. Minimally prominent right basilar markings, atelectatic versus infectious/inflammatory. ACT 112: Negative or not required by law. Electronically signed by: Hossein Hatfield M.D. 07/26/2020 7:29 AM
[2020-07-26 07:42] LABS: Albumin Level 3.7 gm/dl (3.4-5.0); BUN Creatinine Ratio 9.3 (10-20); Calcium 8.8 mg/dl (8.5-10.1); Creatinine Clr Calc Pharmacy 74.9 ml/min; Est GFR (Non-African American) 66.4; Potassium 3.6 mmol/L (3.5-5.1)
[2020-07-26 07:45] LABS: Albumin Globulin Ratio 1.2 (0.9-2); Bilirubin,Total 0.4 mg/dl (0.2-1); Globulin 3.2 gm/dl (2.5-4.0); Total Protein 6.9 gm/dl (6.4-8.2)
[2020-07-26] MEDS: LOXAPINE~ORDER AWAITING ACTION SCH ×2 (08:55→15:11)
[2020-07-26] MEDS ORDERED: ASPIRIN 81 MG ECTAB PO SCH ×2 (09:00)
[2020-07-26] MEDS ORDERED: DULoxetine HCL 20 MG CAP PO SCH (09:00)
[2020-07-26] MEDS ORDERED: ROSUVASTATIN CALCIUM 20 MG TAB PO SCH (09:00)
[2020-07-26] MEDS ORDERED: NICOTINE 21 MG/24 HR TDSY TD SCH (09:00)
[2020-07-26] MEDS ORDERED: NITROGLYCERIN SL 0.4 MG/TAB TAB SL PRN (09:23)
[2020-07-26] MEDS: MoRPHine SULFATE 2 MG/ML CARP IV PRN ×2 (11:14→14:47)
--- NOTE | 2020-07-26 14:11 | Discharge Summary ---
Date of Service July 26, 2020 Admission HPI Per Admitting Provider Mr. Tom Denson w/ a pMHx. of HTN, HLD, CAD s/p CO in 2009, extensive tobacco use, and ventral and umbilical hernia. He developed chest pain that has been constant, 10/10 sharp knife like and radiating to his left arm with numbness and tingling. The pain occurred when he was laying in bed. He was experiencing a lot of stress at the time thinking about how his hernia surgery had been canceled. He has associated shortness of breath. He has no sick contacts. He has used tobacco for 40 years at 5 packs per day. Prior to this episode of chest pain he was walking around He has a history of a ventral and umbilical hernia, previously seen by general surgery with Dr. Rojas. He was having pain which started prior to the chest pain around his umbilicus and radiating to his left testicle. The pain is similar to prior episodes of abdominal pain. He has not noticed any changes in his abdomen in size. No known COVID exposures, no sick contacts. no known allergies. LBM yesterday Principal Diagnosis CP Discharge Exam Constitutional WD/WN, vitals as above Eyes PERRL, conjunctivae normal, anicteric sclerae ENMT external ear and nose normal, oropharynx normal Respiratory normal respiratory effort, lungs clear to auscultation Cardiovascular RRR, no murmur, no edema Gastrointestinal (Abdomen) distended abdomen with normal bowel sounds tender to palpation in the epigastric, periumbilical, suprapubic area Skin no rashes, warm and dry Psychiatric A+Ox3, euthymic affect Discharge Data Allergies Allergy/AdvReac Type Severity Reaction Status Date / Time No Known Allergies Allergy Verified 07/26/20 00:28 Consultations 07/26/20 01:32 ED Decision to Admit Stat Ordered Studies 07/26/20 02:41 CT abd pelvis oral and IV con Urgent Hospital Course (1) Left-sided chest pain: 54 yo M w/ pMHx. of extensive tobacco use, HTN, HLD, prior CO presenting with 10/10 chest pain radiating to his left arm and associated shortness of breath that improved with nitro. Concern for ACS given history and heart score of 6 (moderate). Vitals reassuring throughout this admission. The following was medical management during stay here: Chest pain/shortness of breath EKG with findings unchanged/similar to [address] depression of V4,5,6. No other acute ischemic changes noted. Troponin x3 this admission negative, COVID negative -Ideally this patient would receive a dobutamine stress test, however this capability was not available over the weekend. Please try and arrange for this as an outpatient -Chest pain was improved with morphine and nitro -Continue ASA 81, rosuvastatin 20 mg, as needed nitro upon discharge This admission lungs clear, saturating well on room air, labs unremarkable for any white count It is likely that symptoms might have been exacerbated by hernia as outlined below Abdominal pain w/ Hx. of ventral/umbilical hernia -previously seen by general surgery Dr. Rojas August 2019 who discussed laparosco pic repair of ventral hernia and also repair of umbilical hernia that is very near his ventral hernia -CT abdomen pelvis this admission: No evidence of bowel obstruction. No evidence of free air. Normal appendix. Diverticulosis. No evidence of acute diverticulitis. Left renal angiomyolipomas. 9 cm hepatic hemangioma. Fat- containing abdominal wall hernias. Bladder diverticulum Hepatic hemangioma As noted on CT abdomen pelvis: There is a 9 cm right hepatic lobe mass with nodular peripheral enhancement. This is consistent with HIV hemangioma Per guidelines in asymptomatic patients: >5 cm: Contrast-enhanced magnetic resonance imaging (MRI) in 6 to 12 months: If the lesion size remains stable on surveillance imaging (ie, growth rate >3 mm per year), no further imaging is performed. If the lesion appears to be growing at a rate >3 mm per year, we repeat surveillance with contrast-enhanced MRI in 6 to 12 months. If the lesion appears stable, no further imaging is performed. -If the lesion continues to grow at a rate of >3 mm per year, the patient is evaluated by a multidisciplinary team (eg, electrical technician instructor, hepatobiliary surgeon) for consideration of surgical intervention Psychiatric history - continued home meds which include: Hydroxyzine, Loxapine Succinate, and Mirtazapine Tobacco use - Nicotine patch 21 DVT: ambulation, scd's. At time of discharge patient with no other acute concerns or complaints. Total Time Total Time Spent Total Time Spent (In Minutes): 30 Discharge Plan Discharge Items [facility] Reason For Visit: CHEST PAIN Discharge Diagnosis: cp/sob Activity: Per Instructions section Non-emergency contact: Primary Care Provider Call non-emergency contact if: you have any medication questions, your symptoms worsen and your pain is not controlled Follow-up/Referrals: Sofiya LOWERY [Primary Care Provider] - Diet: Heart Healthy Addtl Attending Provider Instructions: 54 yo M w/ pMHx. of extensive tobacco use, HTN, HLD, prior CO presenting with 10/10 chest pain radiating to his left arm and associated shortness of breath that improved with nitro. Concern for ACS given history and heart score of 6 (moderate). Vitals reassuring throughout this admission. The following was medical management during stay here: Chest pain/shortness of breath EKG with findings unchanged/similar to [address] depression of V4,5,6. No other acute ischemic changes noted. Troponin x3 this admission negative, COVID negative -Ideally this patient would receive a dobutamine stress test, however this capability was not available over the weekend. Please try and arrange for this as an outpatient -Chest pain was improved with morphine and nitro -Continue ASA 81, rosuvastatin 20 mg, as needed nitro upon discharge This admission lungs clear, saturating well on room air, labs unremarkable for any white count It is likely that symptoms might have been exacerbated by hernia as outlined below Abdominal pain w/ Hx. of ventral/umbilical hernia -previously seen by general surgery Dr. Rojas August 2019 who discussed lapa roscopic repair of ventral hernia and also repair of umbilical hernia that is very near his ventral hernia -CT abdomen pelvis this admission: No evidence of bowel obstruction. No evidence of free air. Normal appendix. Diverticulosis. No evidence of acute diverticulitis. Left renal angiomyolipomas. 9 cm hepatic hemangioma. Fat- containing abdominal wall hernias. Bladder diverticulum Hepatic hemangioma As noted on CT abdomen pelvis: There is a 9 cm right hepatic lobe mass with nodular peripheral enhancement. This is consistent with HIV hemangioma Per guidelines in asymptomatic patients: >5 cm: Contrast-enhanced magnetic resonance imaging (MRI) in 6 to 12 months: If the lesion size remains stable on surveillance imaging (ie, growth rate >3 mm per year), no further imaging is performed. If the lesion appears to be growing at a rate >3 mm per year, we repeat surveillance with contrast-enhanced MRI in 6 to 12 months. If the lesion appears stable, no further imaging is performed. -If the lesion continues to grow at a rate of >3 mm per year, the patient is evaluated by a multidisciplinary team (eg, electrical technician instructor, hepatobiliary surgeon) for consideration of surgical intervention Psychiatric history - continued home meds which include: Hydroxyzine, Loxapine Succinate, and Mirtazapine Tobacco use - Nicotine patch 21 DVT: ambulation, scd's. At time of discharge patient with no other acute concerns or complaints. Pending Studies at Discharge: No Skilled Items Patient informed of condition?: Yes DNR: No Discharge Level of Care: Other Communicable Disease: No Discharge Prognosis: Stable Lines: None Urinary Catheter: No Medications and DC Order Prescriptions: Continued acetaminophen [Tylenol Extra Strength] 500 mg Tablet 1,000 mg PO BID PRN (Reason: Pain) RF: 0 loxapine succinate 10 mg Capsule 20 mg PO HS RF: 0 hydroxyzine HCl 25 mg Tablet 75 mg PO HS RF: 0 diclofenac sodium 50 mg Tablet,Delayed Release (Dr/Ec) 50 mg PO TID RF: 0 duloxetine 20 mg Capsule,Delayed Release(Dr/Ec) 40 mg PO BID RF: 0 isosorbide mononitrate 60 mg Tablet Extended Release 24 Hr 60 mg PO HS RF: 0 nitroglycerin 0.4 mg Tablet, Sublingual 0.4 mg sublingual DIRECTED PRN (Reason: Chest Pain) RF: 0 mirtazapine 45 mg Tablet 45 mg PO HS RF: 0 aspirin [Aspirin Childrens] 81 mg Tablet,Chewable 81 mg PO DAILY RF: 0 rosuvastatin 20 mg Tablet 20 mg PO DAILY RF: 0 Admission Data Admit Date/Time: 07/26/20 02:27 Attending Provider: Aubrie Prajapati Admit Provider: Geni Julien Primary Care Provider: Sofiya LOWERY Other Providers: Geni Julien Other Interventions: Discharge Summary Assessment (RN) Last Done: 07/26/20 14:16 Supervising Physician Co-Signing Physician Notes Resident Physician Supervision Note: I independently interviewed and examined the patient and verified the horne history and physical, reviewed labs and image studies, discussed the case with the resident Dr. Cordero and agree with the findings and care plan. Resident Activity Tracking Resident Involvement: Resident Care Provided Care Provided: Adult Hospital Medicine
[2020-07-26] MEDS ORDERED: ISOSORBIDE MONO EXTENDED REL 60 MG TABCR PO SCH (21:00)
[2020-07-26] MEDS ORDERED: hydrOXYzine HCl 25 MG TAB PO SCH (21:00)
[2020-07-26] MEDS ORDERED: MIRTAZAPINE SOLTAB 15 MG PO SCH (21:00)
--- NOTE | 2020-07-26 22:59 | Billing Data ---
Date of Service July 26, 2020 Coding Level of Care Code 24586 OBS Care - Level 3
--- NOTE | 2020-07-27 05:32 | Electrocardiogram Report ---
Test Reason : Blood Pressure : / mmHG Vent. Rate : 103 BPM Atrial Rate : 103 BPM P-R Int : 130 ms QRS Dur : 082 ms QT Int : 338 ms P-R-T Axes : 064 064 049 degrees QTc Int : 442 ms Sinus tachycardia Nonspecific ST abnormality Abnormal ECG When compared with ECG of 08-AUG-2019 11:37, No significant change was found Confirmed by Alexi Rose ([id number]) on 07/27/2020 5:31:51 AM Referred By: Sofiya LOWERY Confirmed By:Alexi Rose
== END 2020-07-26 18:07 ==
LOC: 2W 00:11 → ED 00:11 → SUATTDRO 02:27 → 2W 03:06